=== PATIENT | male | born 1960 | race Caucasian/White ===

== ENCOUNTER 2024-02-24 10:22 | Outpatient (AMB) | payer OTHER, SELFPAY ==
--- NOTE | 2024-02-24 10:23 | MHC.OFFWIV ---
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 Patient's wounds regularly gets ear infections often woke up yesterday with intense ear pain tender to the touch no fever no chills. Put some frll-msg-mtyaldg ear drops with some relief feeling better today but still with pain PFSH Social History Patient Tobacco Use Status: Never used Tobacco Physical Exam Vital Signs: Last Vital Signs Temp 97.7 F 02/24/24 10:28 Pulse 78 02/24/24 10:28 BP 122/68 02/24/24 10:28 Pulse Ox 98 02/24/24 10:28 BMI result Body Mass Index 25.4 Const General: cooperative, healthy appearing, no acute distress and alert Orientation/consciousness: patient oriented x3 Limitations: no limitations HEENT Other: Mild tragal tenderness. Swelling of the right ear canal purulent material eardrum intact Head: Yes normal to inspection Ears: hearing grossly normal bilaterally General nose exam: Normal external nose present Resp Effort & Inspection: normal respiratory effort and able to speak in complete sentences Cardio Rate: regular rate Skin General skin exam: no rashes or lesions noted Neuro General: patient oriented x3 Extrem General: Yes normal to inspection Assessment & Plan Assessment & Plan (1) Otitis externa: Code(s): H60.90 - Unspecified otitis externa, unspecified ear Qualifiers: Otitis externa type: swimmer's ear Chronicity: acute Laterality: right Qualified Code(s): H60.331 - Swimmer's ear, right ear Plan: Exam consistent with otitis externa start ofloxacin Plan -ofloxacin 10 drops q.i.d. times 10 days -Motrin 600 mg t.i.d. times 2-3 day Medications: New ofloxacin 0.3% 10 drps otic (ears) DAILY 10 days 10 mL 0RF Coding Level of Care Code New Pt Level 4 (90448) Diagnoses Acute swimmer's ear of right side H60.331 Otitis externa type: swimmer's ear Chronicity: acute Laterality: right
[2024-02-24 10:28] VITALS: BP 122/68; PULSE 78; TEMP 36.5; O2SAT 98; BMI 25.4
--- OUTSIDE RECORDS SUMMARY | 2024-02-25 00:35 | XMS_ITS | Continuity of Care Document ---
Author Organization [facility] Mohinder Fabiano lt Address [address] [place] [address]- Care Team Providers Care Nib Inspector Name Role Phone Masood Felton MD Primary Care Physician [facility] Adult [address] [place] [address]- Encounter Diagnosis Physical exam(Discharge Diagnosis) - 03/21/21 Macrocytosis without anemia neg lab tsh retivcs hapto B12/folate(Discharge Diagnosis) - 03/21/21 Impaired fasting glycaemia(Discharge Diagnosis) - 03/21/21 Sleep apnea(Discharge Diagnosis) - 03/21/21 Asymmetrical hearing normal MRI'per ENT monitorT(Discharge Diagnosis) - 03/21/21 ED (erectile dysfunction)(Discharge Diagnosis) - 03/21/21 CTS (carpal tunnel syndrome) rt(Discharge Diagnosis) - 03/24/21 Dupuytren contracture left(Discharge Diagnosis) - 03/24/21 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) - 03/24/21 Onychomycosis toenails(Discharge Diagnosis) - 03/24/21 Attending Physician: Masood Felton MD Allergies, Adverse Reactions, Alerts Substance Reaction Severity Status sulfamethoxazole Active Immunizations Given and Recorded Vaccine Date Status Refusal Reason Influenza Virus Vaccine (oldterm) 03/18/21 Recorde d Influenza Virus Vaccine (oldterm) 05/12/20 Recorde d Influenza Virus Vaccine (oldterm) 03/03/20 Recorde d SARS-CoV-2 (COVID-19) mRNA BNT-162b2 vac 10/26/20 Recorded SARS-CoV-2 (COVID-19) mRNA BNT-162b2 vac 10/04/20 Recorded Zoster Vaccine Live 04/02/20 Recorded Zoster Vaccine Live 12/02/19 Recorded influenza virus vaccine, inactivated 1 04/19/16 Re corded influenza virus vaccine, inactivated 05/04/15 Omero rded influenza virus vaccine, inactivated 04/13/14 Omero rded influenza virus vaccine, inactivated 2 07/16/13 Gi bella Afluria (oldterm) 3 05/01/12 Given Tet/Diphth/Acel, Pertussis (oldterm) 06/14/11 Give n tetanus-diphtheria toxoids (Td) 4 04/25/01 Given 1Result Comment: [04/20/2016] [facility] 2Admin Note: pt declines 3Admin Note: given at work 4Admin Note: historical Medications Viagra 100 mg oral tablet 1 tablet = 100 mg, By Mouth, Daily, 1 hour before sexual activity, # 5 tablet, 5 Refills, Maintenance, 03/24/21 7:34:00 EDT, Tablet, [id number], 170, cm, 03/24/21 7:25:00 EDT, Height Start Date: 03/24/21 Status: Ordered Problem List Condition Effective Dates Status Health Status Inform ant Asymmetrical hearing normal MRI'per ENT monitorT(Confirmed) 08/21/20 Active CTS (carpal tunnel syndrome) rt(Confirmed) Active Chronic eczema(Confirmed) Active Dupuytren contracture left(Confirmed) 03/24/21 Active Exostosis of bone of foot le ft refer podaitry(Confirmed) 03/24/21 Active ED (erectile dysfunction)(Confirmed) Active Macrocytosis without anemia neg lab tsh retivcs hapto B12/folate(Confirmed) Active Onychomycosis toenails(Confirmed) Active Osteoarthritis of knee(Confirmed) Active Hx of ankle fusion(Confirmed) 1 09/03/14 Active Sleep apnea ahi 10.3(Confirm ed) 2, 3, 4 Active 1NE Spiritism 2refer CPAP 3The apneas-hypopnea index was 10.3 per hour. The REM AHI was 21.0 per hour and the NREM AHI was 7.7per hour. The supine AHI is 10.3 per hour. The number of arousals was 57 for an arousal index of 9.5. 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
--- OUTSIDE RECORDS SUMMARY | 2024-02-25 00:35 | XMS_ITS | Continuity of Care Document ---
Author Organization [facility] Brayan Vines Fabiano Address [address] [place] [address]- Care Team Providers Care Physician Pediatrician Name Role Phone Brayan Ahmadi MD Primary Care Physician [facility]s): 10[facility]22 - 11/19/22 [facility] Brayan Vines Adult [address] [place] [address]- Allergies, Adverse Reactions, Alerts Substance Reaction Severity Status sulfamethoxazole Active Immunizations Given and Recorded Vaccine Date Status Refusal Reason tetanus-diphtheria toxoids (Td) 10/14/22 Given tetanus-diphtheria toxoids (Td) 1 04/25/01 Given influenza virus vaccine, inactivated 2 04/08/22 Gi bella influenza virus vaccine, inactivated 04/16/20 Omero rded influenza virus vaccine, inactivated 04/30/19 Omero rded influenza virus vaccine, inactivated 04/18/18 Omero rded influenza virus vaccine, inactivated 3 04/19/16 Re corded influenza virus vaccine, inactivated 05/04/15 Omero rded influenza virus vaccine, inactivated 04/14/15 Omero rded influenza virus vaccine, inactivated 04/17/14 Omero rded influenza virus vaccine, inactivated 04/13/14 Omero rded influenza virus vaccine, inactivated 4 07/16/13 Gi bella SARS-CoV-2 (COVID-19) mRNA BNT-162b2 vac 07/15/21 Recorded SARS-CoV-2 (COVID-19) mRNA BNT-162b2 vac 10/26/20 Recorded SARS-CoV-2 (COVID-19) mRNA BNT-162b2 vac 10/04/20 Recorded Influenza Virus Vaccine (oldterm) 03/18/21 Recorde d Influenza Virus Vaccine (oldterm) 05/12/20 Recorde d Influenza Virus Vaccine (oldterm) 03/03/20 Recorde d Zoster Vaccine Live 04/02/20 Recorded Zoster Vaccine Live 12/02/19 Recorded zoster vaccine, inactivated 09/05/19 Recorded zoster vaccine, inactivated 06/07/19 Recorded Afluria (oldterm) 5 05/01/12 Given Tet/Diphth/Acel, Pertussis (oldterm) 06/14/11 Give n 1Admin Note: historical 2Result Comment: [facility] [id number] 3Result Comment: [04/20/2016] [facility] 4Admin Note: pt declines 5Admin Note: given at work Medications Multivitamin Daily, 0 Refills, Maintenance, 04/08/22 8:04:00 EDT, Partial fill upon patient request if the prescription is for a schedule II opioid drug. Start Date: 04/08/22 Status: Ordered tadalafil 5 mg oral tablet 1 tablet = 5 mg, By Mouth, Daily, 1 hour before sexual activity, # 90 tablet, 3 Refills, Maintenance, 10/14/22 9:47:00 EDT, Tablet, [facility], Partial fill upon patient request if the prescription is for a schedule II opioid drug., 170, cm,... Start Date: 10/14/22 Stop Date: 10/09/23 Status: Ordered Problem List Condition Confirmation Course Effective Dates Status H ealth Status Informant Asymmetrical hearing normal MRI'per ENT monitorT Confirmed 08/21/20 Active CTS (carpal tunnel syndrome) rt Confirmed Active Chronic eczema Confirmed Active Dupuytren contracture left Confirmed 03/24/21 Active Exostosis of bone of foot left refer podaitry Confirmed 03/24/21 Active History of arthroplasty of left knee Confirmed Active ED (erectile dysfunction) Confirmed Active Macrocytosis without anemia neg lab tsh retivcs hapto B12/folate Confirmed Active Onychomycosis toenails Confirmed Active Hx of ankle fusion 1 Confirmed 09/03/14 Active Sleep apnea ahi 10.3 2, 3, 4 Confirmed Active 1NE [employer] 2refer CPAP 3The apneas-hypopnea index was 10.3 per hour. The REM AHI was 21.0 per hour and the NREM AHI was 7.7per hour. The supine AHI is 10.3 per hour. The number of arousals was 57 for an arousal index of 9.5. 4per wifel;refer polysomnogram Social History Social History Type Response Smoking Status Never smoker entered on: 07/16/13 Sex Patient Care team information Care Team Personnel Name: Brayan Ahmadi MD Position: S Primary Care Physician Member Role: PCP Address: Address: [address] [place] [address]- Care Team Related Persons Name: BC BARRAGAN Address: home [address] [place] [address]
--- OUTSIDE RECORDS SUMMARY | 2024-02-25 00:35 | XMS_ITS | Continuity of Care Document ---
Author Organization [facility] Mohinder Fabiano lt Address [address] [place] [address]- Care Team Providers Care Commercial Loan Underwriter Name Role Phone Purnima HENSLEY, Masood Hwang Primary Care Physician Encounter [facility] Date(s): 04/08/22 - 04/15/22 [facility] Adult [address] [place] [address]- Encounter Diagnosis Preop examination(Discharge Diagnosis) - 04/06/22 Localized osteoarthritis of left knee/end stage'pre sx(Discharge Diagnosis) - 04/06/22 Sleep apnea ahi 10.3(Discharge Diagnosis) - 04/06/22 Impacted cerumen(Discharge Diagnosis) - 04/08/22 Attending Physician: Masood Felton MD Referring Physician: Jeffrey Cagle MD Allergies, Adverse Reactions, Alerts Substance Reaction Severity Status sulfamethoxazole Active Immunizations Given and Recorded Vaccine Date Status Refusal Reason influenza virus vaccine, inactivated 1 04/08/22 Gi bella influenza virus vaccine, inactivated 2 04/19/16 Re corded influenza virus vaccine, inactivated 05/04/15 Omero rded influenza virus vaccine, inactivated 04/13/14 Oemro rded influenza virus vaccine, inactivated 3 07/16/13 Gi bella Influenza Virus Vaccine (oldterm) 03/18/21 Recorde d Influenza Virus Vaccine (oldterm) 05/12/20 Recorde d Influenza Virus Vaccine (oldterm) 03/03/20 Recorde d SARS-CoV-2 (COVID-19) mRNA BNT-162b2 vac 10/26/20 Recorded SARS-CoV-2 (COVID-19) mRNA BNT-162b2 vac 10/04/20 Recorded Zoster Vaccine Live 04/02/20 Recorded Zoster Vaccine Live 12/02/19 Recorded Afluria (oldterm) 4 05/01/12 Given Tet/Diphth/Acel, Pertussis (oldterm) 06/14/11 Give n tetanus-diphtheria toxoids (Td) 5 04/25/01 Given 1Result Comment: [facility] [phone] 2Result Comment: [04/20/2016] [facility] 3Admin Note: pt declines 4Admin Note: given at work 5Admin Note: historical Medications Multivitamin Daily, 0 Refills, Maintenance, 04/08/22 8:04:00 EDT, Partial fill upon patient request if the prescription is for a schedule II opioid drug. Start Date: 04/08/22 Status: Ordered Problem List Condition Confirmation Course Effective Dates Status H ealth Status Informant Asymmetrical hearing normal MRI'per ENT monitorT Confirmed 08/21/20 Active CTS (carpal tunnel syndrome) rt Confirmed Active Chronic eczema Confirmed Active Dupuytren contracture left Confirmed 03/24/21 Active Exostosis of bone of foot left refer podaitry Confirmed 03/24/21 Active ED (erectile dysfunction) Confirmed Active Macrocytosis without anemia neg lab tsh retivcs hapto B12/folate Confirmed Active Onychomycosis toenails Confirmed Active Localized osteoarthritis of left knee/end stage'pre sx Confirmed Active Hx of ankle fusion 1 Confirmed 09/03/14 Active Sleep apnea ahi 10.3 2, 3, 4 Confirmed Active 1NE [facility] 2refer CPAP 3The apneas-hypopnea index was 10.3 per hour. The REM AHI was 21.0 per hour and the NREM AHI was 7.7per hour. The supine AHI is 10.3 per hour. The number of arousals was 57 for an arousal index of 9.5. 4per wifel;refer polysomnogram Diagnosis Diagnosis Type Effective Dates Health Status Clinical Service Informant Preop examination Discharge Diagnosis 04/06/22 Localized osteoarthritis of left knee/end stage'pre sx Discharge Diagnosis 04/06/22 Sleep apnea ahi 10.3 Discharge Diagnosis 04/06/22 Impacted cerumen Discharge Diagnosis 04/08/22 Procedures Procedure Date Related Diagnosis Body Site Status Electrocardiogram nsr Com pleted Vital Signs Most recent to oldest [Reference Range]: 1 Height 170.00 cm (04/08/22 7:58 AM) Weight 81.5 kg (04/08/22 7:58 AM) Oxygen Saturation [94-100 %] 98 % (04/08/22 7:58 AM) Pulse Rate [55-90 bpm] 76 bpm (04/08/22 7:58 AM) Body Mass Index [18.5-24.99 kg/m2] 28.2 kg/m2 *H* (04/08/22 7:58 AM) Blood Pressure [90-138/55-84 mm Hg] 126/ 70mm Hg (04/08/22 7:58 AM) Mode of Delivery (Oxygen) Room air (04/08/22 7:58 AM) Blood pressure sites Arm, right (04/08/22 7:58 AM) Weight Obtained Via Standing scale (04/08/22 7:58 AM) Social History Social History Type Response Smoking Status Never smoker entered on: 07/16/13 Sex Patient Care team information Personnel Name: Purnima HENSLEY, Masood Hwang Address: Address: [address] [place] [id number]
--- OUTSIDE RECORDS SUMMARY | 2024-02-25 00:35 | XMS_ITS | Continuity of Care Document ---
Author Organization [facility] Mohinder Fabiano lt Address [address] [place] [address]- Care Team Providers Care Heel Washer Stringing Machine Operator Name Role Phone Purnima HENSLEY, Masood Hwang Primary Care Physician [phone] [facility] Date(s): 03/24/21 - 04/23/21 [facility] Mohinder Adult [address] [place] [address]- Allergies, Adverse Reactions, Alerts Substance Reaction Severity [...] (Td) 4 04/25/01 Given 1Result Comment: [04/20/2016] [facility] 2Admin Note: pt declines 3Admin Note: given [...]
--- OUTSIDE RECORDS SUMMARY | 2024-02-25 00:35 | XMS_ITS | Continuity of Care Document ---
Author Organization [facility] Brayan Vines Fabiano Address [address] [place] [address]- Care Team Providers Care General Machinist Name Role Phone Brayan Ahmadi MD Primary Care Physician [facility] Date(s): 01/26/23 - 02/25/23 [facility] Brayan Vines Adult [address] [place] [address]- Allergies, Adverse Reactions, Alerts Substance Reaction Severity [...] Give n 1Admin Note: historical 2Result Comment: [facility] [id number] 3Result Comment: [04/20/2016] [facility] 4Admin Note: pt declines 5Admin Note: given [...] 10.3 2, 3, 4 Confirmed Active 1NE Anabaptist 2refer CPAP 3The apneas-hypopnea index was 10.3 [...] Personnel Name: Brayan Ahmadi MD Position: S Physician - Primary Care Member Role: PCP Address: Address: [address] [place] [address]- Care Team Related Persons Name: BC BARRAGAN Address: home [address] [place] [address]
--- OUTSIDE RECORDS SUMMARY | 2024-02-25 00:36 | XMS_ITS | Continuity of Care Document ---
Author Organization [facility] Brayan Vines Fabiano Address [address] [place] [address]- Care Team Providers Care Efficiency Expert Name Role Phone Brayan Ahmadi MD Primary Care Physician [facility] Date(s): 07/13/23 - 08/12/23 [facility] Brayan Vines Adult [address] [place] [address]- Allergies, Adverse Reactions, Alerts Substance Reaction Severity Status sulfamethoxazole Active Immunizations Given and Recorded Vaccine Date Status Refusal Reason influenza virus vaccine, inactivated 1 07/24/23 Gi bella influenza virus vaccine, inactivated 2 04/08/22 Gi [...] virus vaccine, inactivated 4 07/16/13 Gi bella tetanus-diphtheria toxoids (Td) 10/14/22 Given tetanus-diphtheria toxoids (Td) 5 04/25/01 Given SARS-CoV-2 (COVID-19) mRNA BNT-162b2 vac 07/15/21 Recorded [...] zoster vaccine, inactivated 06/07/19 Recorded Afluria (oldterm) 6 05/01/12 Given Tet/Diphth/Acel, Pertussis (oldterm) 06/14/11 Give n 1Result Comment: [id number] Checklist completed 2Result Comment: [facility] [phone] 3Result Comment: [04/20/2016] [facility] 4Admin Note: pt declines 5Admin Note: historical 6Admin Note: given at work Medications Flonase 50 mcg/inh nasal spray 1 sprays = 50 mcg, Nares, Both, 2 times a day, # 16 Gm, 0 Refills, Maintenance, 07/24/23 11:05:00 EST, [place], [facility], 1 sprays Nares, Both 2 times a day, 170, cm, 07/24/23 10:45:00 EST, Height Start Date: 07/24/23 Status: Ordered Multivitamin Daily, 0 Refills, Maintenance, 04/08/22 8:04:00 EDT, Partial fill upon patient request if the prescription is for a schedule II opioid drug. Start Date: 04/08/22 Status: Ordered PEG-3350 with Electrolytes (Eqv-GoLYTELY) oral powder for reconstitution 240 mL, By Mouth, Every 15 minutes, Split prep method. 1/2 gallon evening prior to colonscopy and 1/2 gallon 6h prior to start of colonoscopy, # 4,000 mL, 0 Refills, Maintenance, 08/07/23 9:51:00 EST, [facility], Colonosopy Date: 08/21/23, 240... Start Date: 08/07/23 Status: Ordered tadalafil 20 mg oral tablet 1 tablet = 20 mg, By Mouth, Daily, PRN as needed, 1 hour before sexual activity, # 5 tablet, 11 Refills, Maintenance, 03/27/23 10:39:00 EDT, Tablet, [facility], Partial fill upon patient request if the prescription is for a schedule II opioid... Start Date: 03/27/23 Status: Ordered Problem List Condition Confirmation Course [...] 10.3 2, 3, 4 Confirmed Active 1NE Pentecostalism 2refer CPAP 3The apneas-hypopnea index was 10.3 [...] Team Personnel Name: Brayan Ahmadi MD Position: [facility] Physician - Primary Care Member Role: PCP Address: Address: [address] [facility] [place] [address]- Care Team Related Persons Name: BC BARRAGAN Address: home [address] [place] [address]
--- OUTSIDE RECORDS SUMMARY | 2024-02-25 00:36 | XMS_ITS | Continuity of Care Document ---
Author Organization [facility] Brayan Vines Fabiano lt Address [address] [place] [address]- Care Team Providers Care Pipe Organ Installer Name Role Phone Brayan Ahmadi MD Primary Care Physician [facility] Date(s): 07/24/23 - 08/23/23 [facility] Adult [address] [place] [address]- Allergies, Adverse Reactions, Alerts Substance Reaction Severity [...] 04/13/14 Omero rded influenza virus vaccine, inactivated 07/16/13 Gi bella tetanus-diphtheria toxoids (Td) 10/14/22 [...] Pertussis (oldterm) 06/14/11 Give n 1Result Comment: [id number] Checklist completed 2Result Comment: [facility] [phone] 3Result Comment: [04/20/2016] [facility] 4Admin Note: pt declines 5Admin Note: historical 6Admin Note: given at work Medications Flonase 50 mcg/inh nasal spray 1 sprays = 50 mcg, Nares, Both, 2 times a day, # 16 Gm, 0 Refills, Maintenance, 07/24/23 11:05:00 EST, [place], [facility], 1 sprays Nares, Both 2 times a day, 170, cm, 07/24/23 10:45:00 EST, Height Start Date: 07/24/23 Status: Ordered Multivitamin Daily, 0 Refills, Maintenance, 04/08/22 8:04:00 EDT, Partial fill upon patient request if the prescription is for a schedule II opioid drug. Start Date: 04/08/22 Status: Ordered tadalafil 20 mg oral tablet 1 tablet = 20 mg, By Mouth, Daily, PRN as needed, 1 hour before sexual activity, # 5 tablet, 11 Refills, Maintenance, 03/27/23 10:39:00 EDT, Tablet, [facility], Partial fill upon patient [...] 10.3 2, 3, 4 Confirmed Active 1NE Baptism 2refer CPAP 3The apneas-hypopnea index was 10.3 [...] Team Personnel Name: Brayan Ahmadi MD Position: [facility] Physician - Primary Care Member Role: PCP Address: Address: [address] [place] [address]- Care Team Related Persons Name: BC BARRAGAN Address: [address] [place] [address]
--- OUTSIDE RECORDS SUMMARY | 2024-02-25 00:36 | XMS_ITS | Continuity of Care Document ---
Author Organization [facility] Brayan Vines Fabiano lt Address [address] [place] [address]- Care Team Providers Care Card Seller Name Role Phone Purnima HENSLEY, Masood Hwang Primary Care Physician Encounter [facility] Date(s): 08/10/20 - 09/09/20 [facility] Brayan Vines Adult [address] [place] [address]- Allergies, Adverse Reactions, Alerts Substance Reaction Severity Status sulfamethoxazole Active Immunizations Given and Recorded Vaccine Date Status Refusal Reason Influenza Virus Vaccine (oldterm) 05/12/20 Recorde d [...] (Td) 4 04/25/01 Given 1Result Comment: [04/20/2016] [facility] 2Admin Note: pt declines 3Admin Note: given at work 4Admin Note: historical Medications Viagra 100 mg oral tablet 1 tablet = 100 mg, By Mouth, Daily, 1 hour before sexual activity, # 5 tablet, 5 Refills, Maintenance, 10/02/15 9:22:26, Tablet Start Date: 10/02/15 Status: Ordered Problem List Condition Effective Dates Status Health Status Inform ant Asymmetrical hearing loss re michi ENT(Confirmed) 08/21/20 Active Body mass index 25-29 - overweight(Confirmed) Active Chronic eczema(Confirmed) Active ED (erectile dysfunction)(Confirmed) Active Macrocytosis without anemia neg lab tsh retivcs hapto B12/folate(Confirmed) Active Osteoarthritis of knee(Confirmed) Active Hx of ankle fusion(Confirmed) 1 09/03/14 Active Sleep apnea(Confirmed) 2, 3, 4 Active 1NE Gnosticist 2refer CPAP 3The apneas-hypopnea index was 10.3 [...]
--- OUTSIDE RECORDS SUMMARY | 2024-02-25 00:36 | XMS_ITS | Continuity of Care Document ---
Author Organization 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 Chief Name Role Phone Masood Felton MD Primary Care Physician [place] [facility] [place] - 08/20/[address] [address]- [facility] Discharge Disposition: A-D/C Home Attending Physician: Masood Felton MD Admitting Physician: Masood Felton MD Referring Physician: Masood Felton MD Allergies, Adverse Reactions, Alerts Substance Reaction Severity Status sulfamethoxazole Active Immunizations Given and Recorded Vaccine Date Status Refusal Reason influenza virus vaccine, inactivated 1 04/19/16 Re corded influenza virus vaccine, inactivated 05/04/15 Omero rded influenza virus vaccine, inactivated 04/13/14 Omero rded influenza virus vaccine, inactivated 2 07/16/13 Gi bella Afluria (oldterm) 3 05/01/12 Given Tet/Diphth/Acel, Pertussis (oldterm) 06/14/11 Give n tetanus-diphtheria toxoids (Td) 4 04/25/01 Given 1Result Comment: [04/20/2016] [facility] 2Admin Note: pt declines 3Admin Note: given at work 4Admin Note: historical Medications Amoxicillin By Mouth, Maintenance, DENTAL INFECTION, 05/10/19 8:31:33 EST Start Date: 05/10/19 Status: Ordered Viagra 100 mg oral tablet 1 tablet = 100 mg, By Mouth, Daily, 1 hour before sexual activity, # 5 tablet, 5 Refills, Maintenance, 10/02/15 9:22:26, Tablet Start Date: 10/02/15 Status: Ordered Problem List Condition Effective Dates Status Health Status Inform ant Body mass index 25-29 - overweight(Confirmed) Active Chronic eczema(Confirmed) Active ED (erectile dysfunction)(Confirmed) Active Macrocytic anemia(Confirmed) 1, 2, 3, 4 Active Osteoarthritis of knee(Confirmed) Active Hx of ankle fusion(Confirmed) 5 09/03/14 Active Sleep apnea(Confirmed) 6, 7, 8 Active 1normal immun fix 2normal tsh haptoglobin b12 3normal b12 folate ldh, haptoglobin,retics 4macrocytosis workup 5NE Moravian 6refer CPAP 7The apneas-hypopnea index was 10.3 per hour. The REM AHI was 21.0 per hour and the NREM AHI was 7.7per hour. The supine AHI is 10.3 per hour. The number of arousals was 57 for an arousal index of 9.5. 8per wifel;refer polysomnogram Social History Social History Type Response Smoking Status Never smoker entered on: 07/16/13 Sex
--- OUTSIDE RECORDS SUMMARY | 2024-02-25 00:36 | XMS_ITS | Continuity of Care Document ---
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 4Admin Note: pt declines 5Admin Note: historical 6Admin Note: given at work Medications Flonase 50 mcg/inh nasal spray 1 sprays = 50 mcg, Nares, Both, 2 times a day, # 16 Gm, 0 Refills, Maintenance, 07/24/23 11:05:00 EST, [place], [facility], 1 sprays [...] 11 Refills, Maintenance, 03/27/23 10:39:00 EDT, Tablet, [facility], Partial fill upon patient [...] 10.3 2, 3, 4 Confirmed Active 1NE Scientologist 2refer CPAP 3The apneas-hypopnea index was 10.3 [...] Team Personnel Name: Brayan Ahmadi MD Position: [facility] Physician - Primary Care Member Role: PCP Address: Address: [address] [place] [address]- Care Team Related Persons Name: BC BARRAGAN Address: [address] [place] [address]
--- OUTSIDE RECORDS SUMMARY | 2024-02-25 00:36 | XMS_ITS | Continuity of Care Document ---
Author Organization [facility] Mohinder Fabiano lt Address [address] [place] [address]- Care Team Providers Care Property Damage Claims Adjustor Name Role Phone Purnima HENSLEY, Masood Hwang Primary Care Physician [place] [facility] [place] 03/22/22 [facility] [place] Adult [address] [place] [address]- Encounter Diagnosis Lower back pain(Discharge Diagnosis) - 03/15/22 Attending Physician: Gill Cortez NP Allergies, Adverse Reactions, Alerts Substance Reaction Severity [...] 04/25/01 Given 1Result Comment: [04/20/2016] [facility] 2Admin Note: pt declines 3Admin Note: given at work 4Admin Note: historical Medications cyclobenzaprine 5 mg oral tablet See Instructions, Take 1 tablet every 8 hours as needed for muscle spasm, # 21 capsule, 0 Refills, Maintenance, 03/15/22 13:36:00 EDT, Tablet, [id number], Partial fill upon patient request ifthe prescription is for a schedule II opioid drug.,... Start Date: 03/15/22 Status: Ordered fluconazole 200 mg oral tablet 1 tablet = 200 mg, By Mouth, Daily, 0 Refills, Maintenance, 09/06/21 9:20:00 EST, Partial fill uponpatient request if the prescription is for a schedule II opioid drug. Start Date: 09/06/21 Status: Ordered Viagra 100 mg oral tablet 1 tablet = 100 mg, By Mouth, Daily, 1 hour before sexual activity, # 5 tablet, 2 Refills, Maintenance, 09/07/21 11:38:00 EST, Tablet, [id number], 170, cm, 09/06/21 9:17:00 EST, Height Start Date: 09/07/21 Status: Ordered Problem List Condition Effective Dates [...] 10.3(Confirm ed) 2, 3, 4 Active 1NE Hindu 2refer CPAP 3The apneas-hypopnea index was 10.3 per hour. The REM AHI was 21.0 per hour and the NREM AHI was 7.7per hour. The supine AHI is 10.3 per hour. The number of arousals was 57 for an arousal index of 9.5. 4per wifel;refer polysomnogram Diagnosis Diagnosis Type Effective Dates Health Status Cl inical Service Informant Lower back pain Discharge Diagnosis 03/15/22 Vital Signs Most recent to oldest [Reference Range]: 1 Height 170.00 cm (03/15/22 1:02 PM) Social History Social History Type Response Smoking Status Never smoker entered on: 07/16/13 Sex Care Team Personnel Name: Purnima HENSLEY, Masood Hwang Address: [address] [place] [id number]
--- OUTSIDE RECORDS SUMMARY | 2024-02-25 00:36 | XMS_ITS | Continuity of Care Document ---
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 4Admin Note: pt declines 5Admin Note: historical 6Admin Note: given at work Medications Multivitamin Daily, [...] 11 Refills, Maintenance, 03/27/23 10:39:00 EDT, Tablet, [facility], [...] 10.3 2, 3, 4 Confirmed Active 1NE Shinto 2refer CPAP 3The apneas-hypopnea index was 10.3 [...] Primary Care Member Role: PCP Address: Address: [address] [place] [address]- Care Team Related Persons Name: BC BARRAGAN Address: home [address] [place] [address]
--- OUTSIDE RECORDS SUMMARY | 2024-02-25 00:36 | XMS_ITS | Continuity of Care Document ---
Author Organization [facility] Mohinder Fabiano lt Address [address] [place] [address]- Care Team Providers Care Supervisor Display Fabrication Name Role Phone Purnima HENSLEY, Masood Hwang Primary Care Physician Encounter [facility] Date(s): 05/25/21 - 06/01/21 [facility] Adult [address] [place] [address]- Encounter Diagnosis Right ankle pain(Discharge Diagnosis) - 05/25/21 Attending Physician: Russell DIRECTOR OF STRATEGIC INITIATIVES, Jess Walters Allergies, Adverse Reactions, Alerts Substance Reaction Severity [...] 4 04/25/01 Given 1Result Comment: [04/20/2016] [facility] 2Admin Note: pt declines 3Admin Note: [...] 10.3(Confirm ed) 2, 3, 4 Active 1NE Adventist 2refer CPAP 3The apneas-hypopnea index was 10.3 per hour. The REM AHI was 21.0 per hour and the NREM AHI was 7.7per hour. The supine AHI is 10.3 per hour. The number of arousals was 57 for an arousal index of 9.5. 4per wifel;refer polysomnogram Diagnosis Diagnosis Type Effective Dates Health Status Cl inical Service Informant Right ankle pain Discharge Diagnosis 05/25/21 Vital Signs Most recent to oldest [Reference Range]: 1 Height 170.00 cm (05/25/21 2:56 PM) Weight 79.52 kg (05/25/21 2:56 PM) Oxygen Saturation [94-100 %] 98 % (05/25/21 2:56 PM) Pulse Rate [55-90 bpm] 70 bpm (05/25/21 2:56 PM) Body Mass Index [18.5-24.99] 27.52 *H* (05/25/21 2:56 PM) Blood Pressure [90-138/55-84 mm Hg] 120/ 76mm Hg (05/25/21 2:56 PM) Respiratory Rate [16-30 br/min] 16 br/mi n (05/25/21 2:56 PM) Temperature [96.8-100.4 DegF] 97.9 DegF (05/25/21 2:56 PM) Mode of Delivery (Oxygen) Room air (05/25/21 2:56 PM) Blood pressure sites Arm, right (05/25/21 2:56 PM) Temperature Route Oral (05/25/21 2:56 PM) Weight Obtained Via Standing scale (05/25/21 2:56 PM) Social History Social History Type Response Smoking Status Never smoker entered on: 07/16/13 Sex
--- OUTSIDE RECORDS SUMMARY | 2024-02-25 00:36 | XMS_ITS | Continuity of Care Document ---
Author Organization [facility] Brayan Vines Fabiano lt Address [address] [place] [address]- Care Team Providers Care Manager Massage Department Name Role Phone Masood Felton MD Primary Care Physician Encounter [facility] [place] Date(s): 07/20/19 - 11/17/19 [facility] Adult [address] [place] [address]- [facility] Attending Physician: Masood Felton MD Allergies, Adverse [...] 4 04/25/01 Given 1Result Comment: [04/20/2016] [facility] 2Admin Note: pt declines 3Admin Note: [...] b12 folate ldh, haptoglobin,retics 4macrocytosis workup 5NE Episcopalian 6refer CPAP 7The apneas-hypopnea index was 10.3 [...]
--- OUTSIDE RECORDS SUMMARY | 2024-02-25 00:36 | XMS_ITS | Continuity of Care Document ---
Author Organization [facility] Mohinder Fabiano lt Address [address] [place] [address]- Care Team Providers Care Tube Room Supervisor Name Role Phone Brayan Ahmadi MD Primary Care Physician Encounter [facility] [place] Date(s): 07/24/23 - 07/31/23 [facility] Adult [address] [place] [address]- Attending Physician: Not on Staff, Attending MD Allergies, Adverse Reactions, Alerts Substance Reaction [...] Pertussis (oldterm) 06/14/11 Give n 1Result Comment: [id number] Checklist completed 2Result Comment: [facility] [id number] 3Result Comment: [04/20/2016] [facility] 4Admin Note: pt declines 5Admin Note: historical 6Admin Note: given at work Medications Flonase 50 mcg/inh nasal spray 1 sprays = 50 mcg, Nares, Both, 2 times a day, # 16 Gm, 0 Refills, Maintenance, 07/24/23 11:05:00 EST, [place], [facility], 1 sprays [...] 11 Refills, Maintenance, 03/27/23 10:39:00 EDT, Tablet, [facility], Partial fill upon [...] 10.3 2, 3, 4 Confirmed Active 1NE Oriental Orthodox 2refer CPAP 3The apneas-hypopnea index was 10.3 per hour. The REM AHI was 21.0 per hour and the NREM AHI was 7.7per hour. The supine AHI is 10.3 per hour. The number of arousals was 57 for an arousal index of 9.5. 4per wifel;refer polysomnogram Vital Signs Most recent to oldest [Reference Range]: 1 2 Height 170.00 cm (07/24/23 10:45 AM) 170.00 cm (07/24/23 10:39 AM) Weight 79.4 kg (07/24/23 10:39 AM) Oxygen Saturation [94-100 %] 97 % (07/24/23 10:39 AM) Pulse Rate [55-90 bpm] 68 bpm (07/24/23 10:39 AM) Body Mass Index [18.5-24.99 kg/m2] 27.47 kg/m2 *H* (07/24/23 10:39 AM) Blood Pressure [90-138/55-84 mm Hg] 159/ 89mm Hg *H* (07/24/23 10:45 AM) 151/85mm Hg *H* (07/24/23 10:39 AM) Temperature [96.8-100.4 DegF] 98.2 DegF (07/24/23 10:39 AM) Mode of Delivery (Oxygen) Room air (07/24/23 10:39 AM) Blood pressure sites Arm, left (07/24/23 10:45 AM) Arm, left (07/24/23 10:39 AM) Temperature Route Oral (07/24/23 10:39 AM) Weight Obtained Via Standing scale (07/24/23 10:39 AM) Social History Social History Type Response Smoking Status Never smoker entered on: 07/16/13 Sex Note * Kala Gamez: PERFORM, SIGN, VERIFY Event Display: Patient Education/Instruction Authored Date: [id number] [facility] *BMP So Mohinder Adlt Clinical Summary Name BONY BARRAGAN Age 62 Years 1960 PCP Daiana HENSLEY, Brayan England PCP Visit Date 07/24/2023 10:36:00 Additional Instructions: Scheduled Appointments?? Future Appointments ?[facility] ?[address] ?[facility],??[place],??[address] ?Phone:??[phone]?Fax:??-- ?Appt. Date:??08/21/2023?8:30 AM ?Scheduled Provider:??[id number] Follow-Up Instructions ?? Diagnosis Medications: Please continue your medications until treatment is completed or stopped by your provider. Discuss any questions related to medications with your provider. New Medications [facility], [address] [place], [place] [id number], [phone] Fluticasone Nasal (Flonase 50 mcg/inh nasal spray) 1 spray(s) Nares, Both twice a day. Refills: 0. Next Dose: Medications to Continue with No Changes These medications were not printed or sent to your pharmacy Multivitamin Daily. Next Dose: tadalafil (tadalafil 20 mg oral tablet) 1 tab(s) Oral Daily as needed. 1 hour before sexual activity. Refills: 11. Next Dose: Allergy Info:?? sulfamethoxazole Medications Given This Visit Future Orders ?No future orders Vital Signs Height 170.00 cm Weight 79.4 kg BMI 27.47 kg/m2 Blood Pressure 159 mm Hg/89 mm Hg Temperature 98.2 DegF Pulse Rate 68 bpm Respiratory Rate 02 Sat Mode of Delivery 97 %/Room air You can now view a summary of your hospital visit from the comfort of your home through a free online portal called [employer]. [employer] is a website that allows you to securely view your medical information including discharge summary, medications and follow-up visits. ??You can alsosend a secure electronic message to your doctor???s office to request appointments, renew medications or just ask a question. You can enroll at [email or web address] or register during your next office visit. Disclaimer:?? The information provided is of a general nature and is intended to be used in conjunction with the recommendations and advice of your health care practitioner. ??Every effort has been made to ensure that the information provided is accurate and complete at the time it is provided to you however, as your needs change, or, as new ??information becomes available, different or additional instructions may be required. If you have questions, please consult with your primary care provider or pharmacist, as appropriate. ??This information is not intended to serve as substitution for assessment and evaluation by a qualified health care provider. If you do not have a primary care provider, you may find a [facility] provider by calling [facility] [employer] Link at [phone]. [facility], in keeping with [facility] guidance, no longer requires face masks for staff, patientsor visitors in most situations. Similar to time spent indoors at other locations, there is the chance that you were exposed to respiratory viruses during your time with us (such as flu or COVID-19).? If you develop symptoms concerning for a viral respiratory infection, please seek testing (and treatment if indicated) from your medical provider or home test kit. For information about the plan of care including goals and instructions for your diagnosis, please see the patient education orders section of this document. Patient Education Materials?? The content of this educational material or handout may have been modified, supplemented, or adapted from its original content and format to support your individualized medical care. Fluid in the Middle Ear, No Infection (Adult) Earaches can happen without an infection. This occurs when air and fluid build up behind the eardrum causing a feeling of fullness and discomfort and reduced hearing. This is called otitis media witheffusion (OME) or serous otitis media. It means there is fluid in the middle ear. It is not the same as acute otitis media, which is typically from infection. OME can happen when you have a cold if congestion blocks the passage that drains the middle ear (eustachian tube). It may also occur with nasal allergies or after a bacterial middle ear infection. The pain/discomfort may come and go. You may hear clicking or popping sounds when you chew or swallow. You may feel that your balance is off. Or you may hear ringing in the ear. It often takes from several weeks up to 3 months for the fluid to clear on its own. Oral pain relievers and ear drops help if there is pain. Decongestants and antihistamines sometimes help. Antibiotics don't help since there is no infection. Your doctor may prescribe a nasal spray to help reduce swelling in the nose and eustachian tube. This can allow the ear to drain. If it doesn't improve after 3 months, surgery may be used to drain the fluid and insert a small tube in the eardrum to allow continued drainage. Because the middle ear fluid can become infected, it is important to watch for signs of an ear infection which may develop later. These signs include increased ear pain, fever, or drainage from the ear. Home care The following guidelines will help you care for yourself at home: ??? You may use acetaminophen or ibuprofen to control pain, unless another medicine was prescribed.[NOTE: If you have chronic liver or kidney disease or ever had a stomach ulcer or GI bleeding, talkwith your doctor before using these medicines.] (Aspirin should never be used in anyone under 18 years of age who is ill with a fever. It may cause severe liver damage.) ??? While not always helpful, you may use tgit-cjh-xqnnamr decongestants such as phenylephrine or pseudoephedrine. Don't use nasal spray decongestants more than 3 days. Longer use can make congestionworse. (Prescription nasal sprays from your doctor don't typically have those restrictions.) ??? Antihistamines may help if you are also having allergy symptoms. ??? You may use medicines such as guaifenesin to thin mucus and promote drainage. Follow-up care Follow up with your doctor or as advised if you are not feeling better after 3 days. When to seek medical care Get prompt medical attention if any of the following occur: ??? Ear pain gets worse or does not start to improve ??? Fever of 100.4??F (38??C) or higher, or as directed by your health care provider ??? Fluid or blood draining from the ear ??? Headache or sinus pain ??? Stiff neck ??? Unusual drowsiness or confusion ?? [id number] [employer] [address] [place] [address], [place] [address]. All rights reserved. This information is not intended as a substitute for professional medical care. Always follow your healthcare professional's instructions. Patient Care team information Care Team Personnel Name: Brayan Ahmadi MD Position: [facility] Physician - Primary Care Member Role: PCP Address: Address: [address] [place] [address]- Care Team Related Persons Name: BC BARRAGAN Address: home [address] [place] [address]
--- OUTSIDE RECORDS SUMMARY | 2024-02-25 00:36 | XMS_ITS | Continuity of Care Document ---
Author Organization [facility] Mohinder Fabiano lt Address [address] [place] [address]- Care Team Providers Care Press Operator Heavy Duty Name Role Phone Purnima HENSLEY, Masood Hwang Primary Care Physician Encounter [facility] Date(s): 09/18/20 - 10/18/20 [facility] [place] Adult [address] [place] [address]- Allergies, Adverse Reactions, Alerts Substance Reaction Severity [...] 04/25/01 Given 1Result Comment: [04/20/2016] [facility] 2Admin Note: pt declines 3Admin Note: [...] Sleep apnea(Confirmed) 2, 3, 4 Active 1NE Yazdanism 2refer CPAP 3The apneas-hypopnea index was 10.3 per hour. The REM AHI was 21.0 per hour and the NREM AHI was 7.7per hour. The supine AHI is 10.3 per hour. The number of arousals was 57 for an arousal index of 9.5. 4per wifel;refer polysomnogram Procedures Procedure Date Related Diagnosis Body Site Status MRI of brain and brain stem normal iac 1 09/18/20 Completed 1Normal IACs. The visualized brain parenchyma shows bilateral white matter disease without enhancement. The findings are nonspecific and could be due to chronic small vessel ischemic disease. Please correlate clinically. Social History Social History Type Response Smoking Status Never smoker entered on: 07/16/13 Sex
--- OUTSIDE RECORDS SUMMARY | 2024-02-25 00:36 | XMS_ITS | Continuity of Care Document ---
Author Organization [facility] Mohinder Fabiano Address [address] [place] [address]- Care Team Providers Care Carton Filling Machine Operator Name Role Phone Purnima HENSLEY, Masood Hwang Primary Care Physician [phone] [place] [facility] 09/07/21 - 10/07/21 [facility] [place] Adult [address] [place] [address]- Allergies, Adverse Reactions, Alerts Substance Reaction Severity [...] 04/25/01 Given 1Result Comment: [04/20/2016] [facility] 2Admin Note: pt declines 3Admin Note: given at work 4Admin Note: historical Medications fluconazole 200 mg oral tablet 1 tablet [...] 2 Refills, Maintenance, 09/07/21 11:38:00 EST, Tablet, [id number], 170, cm, 09/06/21 9:17:00 EST, Height [...] 10.3(Confirm ed) 2, 3, 4 Active 1NE Church 2refer CPAP 3The apneas-hypopnea index was 10.3 [...]
--- OUTSIDE RECORDS SUMMARY | 2024-02-25 00:36 | XMS_ITS | Continuity of Care Document ---
Author Organization [facility] Mohinder Fabiano lt Address [address] [place] [address]- Care Team Providers Care Port Captain Name Role Phone Purnima HENSLEY, Masood Hwang Primary Care Physician En[facility] [place] [place] Date(s): 07/02/20 - 08/01/20 [facility] Adult [address] [place] [address]- Attending Physician: Admtr, Ar8 Allergies, Adverse Reactions, Alerts Substance Reaction Severity [...] 04/25/01 Given 1Result Comment: [04/20/2016] [facility] 2Admin Note: pt declines 3Admin Note: [...] Sleep apnea(Confirmed) 2, 3, 4 Active 1NE Buddhism 2refer CPAP 3The apneas-hypopnea index was 10.3 per hour. The REM AHI was 21.0 per hour and the NREM AHI was 7.7per hour. The supine AHI is 10.3 per hour. The number of arousals was 57 for an arousal index of 9.5. 4per wifel;refer polysomnogram Procedures Procedure Date Related Diagnosis Body Site Status Polysomnogram 1 07/23/13 Completed 1The apneas-hypopnea index was 10.3 per hour. The REM AHI was 21.0 per hour and the NREM AHI was 7.7per hour. The supine AHI is 10.3 per hour. The number of arousals was 57 for an arousal index of 9.5. refer cpap Social History Social History Type Response Smoking Status Never smoker entered on: 07/16/13 Sex
--- OUTSIDE RECORDS SUMMARY | 2024-02-25 00:36 | XMS_ITS | Continuity of Care Document ---
Author Organization [facility] Mohinder Fabiano lt Address [address] [place] [address]- Care Team Providers Care Shoer Name Role Phone Brayan Ahmadi MD Primary Care Physician [place] [facility] [place] 11/01/23 - 11/08/23 [facility] Adult [address] [place] [address]- Attending Physician: Brayan Ahmadi MD Allergies, Adverse Reactions, Alerts Substance Reaction [...] Pertussis (oldterm) 06/14/11 Give n 1Result Comment: [id number] Checklist completed 2Result Comment: [facility] [phone] 3Result Comment: [04/20/2016] [facility] 4Admin Note: pt declines 5Admin Note: [...] 10.3 2, 3, 4 Confirmed Active 1NE Yazdanism 2refer CPAP 3The apneas-hypopnea index was 10.3 per hour. The REM AHI was 21.0 per hour and the NREM AHI was 7.7per hour. The supine AHI is 10.3 per hour. The number of arousals was 57 for an arousal index of 9.5. 4per wifel;refer polysomnogram Vital Signs Most recent to oldest [Reference Range]: 1 Height 170 cm (11/01/23 8:23 AM) Weight 79.4 kg (11/01/23 8:23 AM) Oxygen Saturation [94-100 %] 98 % (11/01/23 8:23 AM) Pulse Rate [55-90 bpm] 82 bpm (11/01/23 8:23 AM) Body Mass Index [18.5-24.99 kg/m2] 27.47 kg/m2 *H* (11/01/23 8:23 AM) Blood Pressure [90-138/55-84 mm Hg] 110/ 82mm Hg (11/01/23 8:23 AM) Mode of Delivery (Oxygen) Room air (11/01/23 8:23 AM) Blood pressure sites Arm, left (11/01/23 8:23 AM) Weight Obtained Via Standing scale (11/01/23 8:23 AM) Social History Social History Type Response Smoking Status Never smoker entered on: 07/16/13 Sex Note * Maye Morales: PERFORM, SIGN, VERIFY Event Display: Patient Education/Instruction Authored Date: [id number] [facility] *MIGUELINA Brown Clinical Summary Name BONY BARRAGAN Age 63 Years 1960 PCP Brayan Ahmadi MD PCP Visit Date 11/01/2023 08:15:00 Additional Instructions: Scheduled Appointments?? Future Appointments ?No Future Appointments Scheduled Follow-Up Instructions ?? With: Address: When: Brayan Ahmadi MD In 1 year Comments: Physical examination Diagnosis Medications: Please continue your medications until treatment is completed or stopped by your provider. Discuss any questions related to medications with your provider. Medications to Continue with No Changes These medications were not printed or sent to your pharmacy Multivitamin Daily. Next Dose: tadalafil (tadalafil 20 mg oral tablet) 1 tab(s) Oral Daily as needed. 1 hour before sexual activity. Refills: 11. Next Dose: No Longer Take the Following Medications Fluticasone Nasal (Flonase 50 mcg/inh nasal spray) 1 spray(s) Nares, Both twice a day. Refills: 0. Allergy Info:?? sulfamethoxazole Medications Given This Visit Future Orders ?No future orders Future Orders ?Comprehensive Metabolic Panel? Order Date:11/01/23?- Complete within?Lipid Panel? Order Date:11/01/23?- Complete within?PSA? Order Date:11/01/23?- Complete within? Vital Signs Height 170 cm Weight 79.4 kg BMI 27.47 kg/m2 Blood Pressure 110 mm Hg/82 mm Hg Temperature Pulse Rate 82 bpm Respiratory Rate 02 Sat Mode of Delivery 98 %/Room air You can now view a summary of your hospital visit from the comfort of your home through a free online portal called [employer] is a website that allows you to securely view your medical information including discharge summary, medications and follow-up visits. ??You can alsosend a secure electronic message to your doctor???s office to request appointments, renew medications or just ask a question. You can enroll at [email or web address] or register during your next office visit. [...] primary care provider, you may find a [facility] provider by calling [facility] Link at [phone]. [facility], in keeping with [facility] guidance, no longer requires face masks for [...] format to support your individualized medical care. Patient Care team information Care Team Personnel Name: Brayan Ahmadi MD Position: S Physician - Primary Care Member Role: PCP Address: Address: [address] [place] [address] [place] [address]- [place] Care Team Related Persons Name: BC BARRAGAN Address: home [address] [place] [address] [place] [address]
--- OUTSIDE RECORDS SUMMARY | 2024-02-25 00:36 | XMS_ITS | Continuity of Care Document ---
Author Organization [facility] Mohinder Fabiano Address [address] [place] [address]- Care Team Providers Care Washing Machine Installer Name Role Phone Purnima HENSLEY, Masood Hawng Primary Care Physician [phone] [facility] Date(s): 02/22/22 - 03/24/22 [facility] [place] Adult [address] [place] [address]- Allergies, Adverse Reactions, Alerts Substance Reaction Severity [...] [facility] 2Admin Note: pt declines 3Admin Note: given [...] 2 Refills, Maintenance, 09/07/21 11:38:00 EST, Tablet, [facility]/pharmacy #[id number], 170, cm, 09/06/21 9:17:00 EST, [...] 10.3(Confirm ed) 2, 3, 4 Active 1NE Adventism 2refer CPAP 3The apneas-hypopnea index was 10.3 [...] Personnel Name: Purnima HENSLEY, Masood Hwang Address: [address] [place] [address] [place] [address]- [place]
--- OUTSIDE RECORDS SUMMARY | 2024-02-25 00:36 | XMS_ITS | Continuity of Care Document ---
Author Organization [facility] Mohinder Fabiano Address [address] [place] [address]- Care Team Providers Care Chemistry Physics Teacher Name Role Phone Purnima HENSLEY, Masood Hwang Primary Care Physician [phone] Encounter [facility] Date(s): 03/03/22 - 04/02/22 [facility] Mohinder Adult [address] [place] [address]- Allergies, Adverse Reactions, Alerts Substance Reaction Severity [...] 1Result Comment: [04/20/2016] [facility] 2Admin Note: pt declines 3Admin Note: given at work 4Admin Note: historical Medications cyclobenzaprine 5 mg oral tablet See Instructions, Take 1 tablet every 8 hours as needed for muscle spasm, # 21 capsule, 0 Refills, Maintenance, 03/15/22 13:36:00 EDT, Tablet, [facility]/pharmacy #[id number], Partial fill upon patient request ifthe [...] 2 Refills, Maintenance, 09/07/21 11:38:00 EST, Tablet, [facility]/pharmacy #[id number], 170, cm, 09/06/21 9:17:00 EST, Height Start Date: 09/07/21 Status: Ordered Problem List Condition Confirmation Course [...] B12/folate Confirmed Active Onychomycosis toenails Confirmed Active Osteoarthritis of knee Confirmed Active Hx of ankle fusion 1 Confirmed 09/03/14 Active Sleep apnea ahi 10.3 2, 3, 4 Confirmed Active 1NE Zoroastrianism 2refer CPAP 3The apneas-hypopnea index was 10.3 [...] Name: Purnima HENSLEY, Masood Hwang Address: Address: [address] [place] [id number]
--- OUTSIDE RECORDS SUMMARY | 2024-02-25 00:36 | XMS_ITS | Continuity of Care Document ---
Author Organization [facility] Mohinder Fabiano lt Address [address] [place] [address]- Care Team Providers Care Upper Doubler Name Role Phone Brayan Ahmadi MD Primary Care Physician [facility]counter [facility] Date(s): 02/28/23 - 03/30/23 [facility] Brayan Vines Adult [address] [place] [address]- Allergies, Adverse Reactions, Alerts Substance Reaction Severity [...] Give n 1Admin Note: historical 2Result Comment: [facility] [phone] 3Result Comment: [04/20/2016] [facility] 4Admin Note: pt declines 5Admin Note: given [...] 10.3 2, 3, 4 Confirmed Active 1NE Hindu 2refer CPAP 3The apneas-hypopnea [...] Primary Care Member Role: PCP Address: Address: [address] [place] [address]- Care Team Related Persons Name: BC BARRAGAN Address: home [address] [place] [address]
--- OUTSIDE RECORDS SUMMARY | 2024-02-25 00:36 | XMS_ITS | Continuity of Care Document ---
Author Organization [facility] Brayan Vines Fabiano Address [address] [place] [address]- Care Team Providers Care Hired Hand Name Role Phone Brayan Ahmadi MD Primary Care Physician [facility]counter [facility] Date(s): 03/31/23 - 04/30/23 [facility] Brayan Vines Adult [address] [place] [address]- Allergies, Adverse Reactions, Alerts Substance Reaction Severity [...] Give n 1Admin Note: historical 2Result Comment: [facility] [phone] 3Result Comment: [04/20/2016] [facility] 4Admin Note: pt declines 5Admin Note: [...] 10.3 2, 3, 4 Confirmed Active 1NE Latter Day 2refer CPAP 3The apneas-hypopnea index was 10.3 [...] Team Personnel Name: Brayan Ahmadi MD Position: [facility] Physician - Primary Care Member Role: PCP Address: Address: [address] [place] [address]- Care Team Related Persons Name: BC BARRAGAN Address: home [address] [place] [address]
--- OUTSIDE RECORDS SUMMARY | 2024-02-25 00:36 | XMS_ITS | Continuity of Care Document ---
Author Organization [facility] Brayan Vines Fabiano Address [address] [place] [address]- Care Team Providers Care Tungsten Refiner Name Role Phone Brayan Ahmadi MD Primary Care Physician [facility]counter [facility] Date(s): 02/06/23 - 03/08/23 [facility] Brayan Vines Adult [address] [place] [address]- Allergies, Adverse Reactions, Alerts Substance Reaction Severity [...] Comment: [facility] [phone] 3Result Comment: [04/20/2016] [facility] 4Admin Note: pt declines 5Admin Note: [...] 10.3 2, 3, 4 Confirmed Active 1NE Roman Catholic 2refer CPAP 3The apneas-hypopnea index was 10.3 [...] Care Member Role: PCP Address: Address: [address] [place] [address]- Care Team Related Persons Name: BC BARRAGAN Address: home [address] [place] [address]
--- OUTSIDE RECORDS SUMMARY | 2024-02-25 00:36 | XMS_ITS | Continuity of Care Document ---
Author Organization [facility] Brayan Vines Fabiano lt Address [address] [place] [address]- Care Team Providers Care Personal Property Appraiser Name Role Phone Purnima HENSLEY, Masood Hwang Primary Care Physician Encounter [facility] Date(s): 06/05/20 - 07/05/20 [facility] Mohinder Adult [address] [place] [address]- Allergies, Adverse Reactions, Alerts Substance Reaction Severity [...] 4 04/25/01 Given 1Result Comment: [04/20/2016] [facility] 2Admin Note: pt declines 3Admin Note: [...] Sleep apnea(Confirmed) 2, 3, 4 Active 1NE Rastafarian 2refer CPAP 3The apneas-hypopnea index was 10.3 [...]
--- OUTSIDE RECORDS SUMMARY | 2024-02-25 00:36 | XMS_ITS | Continuity of Care Document ---
Author Organization [facility] Brayan Vines Fabiano lt Address [address] [place] [address]- Care Team Providers Care Computing Tutor Name Role Phone Masood Felton MD Primary Care Physician En[place] [facility] Date(s): 08/21/20 - 08/28/20 [facility] Mohinder Adult [address] [place] [address]- Encounter Diagnosis Asymmetrical hearing loss refer ENT(Discharge Diagnosis) - 08/21/20 Attending Physician: Masodo Felton MD Allergies, Adverse Reactions, Alerts Substance [...] 04/25/01 Given 1Result Comment: [04/20/2016] [facility] 2Admin Note: pt declines 3Admin Note: given at work 4Admin Note: historical Medications Viagra 100 mg oral tablet 1 tablet = 100 mg, By Mouth, Daily, 1 hour before sexual activity, # 5 tablet, 5 Refills, Maintenance, 04/01/16 9:22:26, Tablet Start Date: 10/02/15 Status: Ordered [...] Sleep apnea(Confirmed) 2, 3, 4 Active 1NE Orthodox 2refer CPAP 3The apneas-hypopnea index was 10.3 per hour. The REM AHI was 21.0 per hour and the NREM AHI was 7.7per hour. The supine AHI is 10.3 per hour. The number of arousals was 57 for an arousal index of 9.5. 4per wifel;refer polysomnogram Diagnosis Diagnosis Type Effective Dates Health Status Clinical Service Informant Asymmetrical hearing loss refer ENT Discharge Diagnosis 08/21/20 Vital Signs Most recent to oldest [Reference Range]: 1 Height 170.00 cm (08/21/20 9:26 AM) Weight 77.8 kg (08/21/20 9:26 AM) Oxygen Saturation [94-100 %] 97 % (08/21/20 9:26 AM) Pulse Rate [55-90 bpm] 62 bpm (08/21/20 9:26 AM) Body Mass Index [18.5-24.99] 26.92 *H* (08/21/20 9:26 AM) Blood Pressure [90-138/55-84 mm Hg] 110/ 62mm Hg (08/21/20 9:26 AM) Respiratory Rate [16-30 br/min] 16 br/mi n (08/21/20 9:26 AM) Temperature [96.8-100.4 DegF] 98.2 DegF (08/21/20 9:26 AM) Blood pressure sites Arm, left (08/21/20 9:26 AM) Temperature Route Oral (08/21/20 9:26 AM) Social History Social History Type Response Smoking Status Never smoker entered on: 07/16/13 Sex
--- OUTSIDE RECORDS SUMMARY | 2024-02-25 00:36 | XMS_ITS | Continuity of Care Document ---
Author Organization [facility] Brayan Vines Fabiano Address [address] [place] [address]- Care Team Providers Care Mobile Home Laborer Name Role Phone Brayan Ahmadi MD Primary Care Physician [facility] Date(s): 03/27/23 - 04/26/23 [facility] Brayan Vines Adult [address] [place] [address]- Allergies, Adverse Reactions, Alerts Substance Reaction Severity [...] Give n 1Admin Note: historical 2Result Comment: [facility] [phone] 3Result Comment: [04/20/2016] [facility] 4Admin Note: pt declines 5Admin Note: [...] 10.3 2, 3, 4 Confirmed Active 1NE Islam 2refer CPAP 3The apneas-hypopnea index was 10.3 [...] Team Personnel Name: Brayan Ahmadi MD Position: [facility] Physician - Primary Care Member Role: PCP Address: Address: [address] [place] [address]- Care Team Related Persons Name: BC BARRAGAN Address: home [address] [place] [address]
--- OUTSIDE RECORDS SUMMARY | 2024-02-25 00:36 | XMS_ITS | Continuity of Care Document ---
Author Organization [facility] Brayan Vines Fabiano lt Address [address] [place] [address]- Care Team Providers Care Crime Scene Evidence Technician Name Role Phone Masood Felton MD Primary Care Physician Encounter [facility] Date(s): 07/02/20 - 07/09/20 [facility] Brayan Vines Adult [address] [place] [address]- Encounter Diagnosis Clogged ear(Discharge Diagnosis) - 07/02/20 Attending Physician: Masood Felton MD Allergies, Adverse [...] 04/25/01 Given 1Result Comment: [04/20/2016] [facility] 2Admin Note: pt declines 3Admin Note: given at work 4Admin Note: historical Medications Amoxicillin By Mouth, Maintenance, DENTAL INFECTION, 05/10/19 8:31:33 EST Start Date: 11/8/19 Status: Ordered Viagra 100 mg oral tablet [...] Sleep apnea(Confirmed) 2, 3, 4 Active 1NE Latter Day 2refer CPAP 3The apneas-hypopnea index was 10.3 per hour. The REM AHI was 21.0 per hour and the NREM AHI was 7.7per hour. The supine AHI is 10.3 per hour. The number of arousals was 57 for an arousal index of 9.5. 4per wifel;refer polysomnogram Diagnosis Diagnosis Type Effective Dates Health Status Clini rehan Service Informant Clogged ear Discharge Diagnosis 07/02/20 Vital Signs Most recent to oldest [Reference Range]: 1 Height 170.00 cm (07/02/20 8:42 AM) Temperature [96.8-100.4 DegF] 98.4 DegF (07/02/20 8:42 AM) Social History Social History Type Response Smoking Status Never smoker entered on: 07/16/13 Sex
--- OUTSIDE RECORDS SUMMARY | 2024-02-25 00:36 | XMS_ITS | Continuity of Care Document ---
Author Organization [facility] Brayan Vines Fabiano Address [address] [place] [address]- Care Team Providers Care Spinal Surgeon Name Role Phone Brayan Ahmadi MD Primary Care Physician [phone] [facility]counter [facility] Date(s): 01/26/23 - 02/25/23 [facility] Brayan Vines Adult [address] [place] [address]- Allergies, Adverse Reactions, Alerts Substance Reaction Severity [...] Give n 1Admin Note: historical 2Result Comment: [facility] [phone] 3Result Comment: [04/20/2016] [facility] 4Admin Note: pt declines 5Admin Note: [...] 10.3 2, 3, 4 Confirmed Active 1NE Spiritism 2refer CPAP 3The apneas-hypopnea [...] Care Member Role: PCP Address: Address: [address] [place] [address]- Care Team Related Persons Name: BC BARRAGAN Address: home [address] [place] [address]
--- OUTSIDE RECORDS SUMMARY | 2024-02-25 00:36 | XMS_ITS | Continuity of Care Document ---
Author Organization [facility] Brayan Vines Fabaino Address [address] [place] [address]- Care Team Providers Care Assembler Faucets Name Role Phone Brayan Ahmadi MD Primary Care Physician [facility] Date(s): 03/24/23 - 04/23/23 [facility] Brayan Vines Adult [address] [place] [address]- Allergies, Adverse Reactions, Alerts Substance Reaction Severity [...] n 1Admin Note: historical 2Result Comment: [facility] [phone] 3Result Comment: [04/20/2016] [facility] 4Admin Note: pt declines 5Admin Note: given [...] 10.3 2, 3, 4 Confirmed Active 1NE Christian 2refer CPAP 3The apneas-hypopnea index was 10.3 [...] Team Personnel Name: Brayan Ahmadi MD Position: [facility] Physician - Primary Care Member Role: PCP Address: Address: [address] [place] [address]- Care Team Related Persons Name: BC BARRAGAN Address: home [address] [place] [address]
--- OUTSIDE RECORDS SUMMARY | 2024-02-25 00:36 | XMS_ITS | Continuity of Care Document ---
Author Organization [facility] Mohinder Fabiano lt Address [address] [place] [address]- Care Team Providers Care Radiology Physician Assistant Name Role Phone Brayan Ahmadi MD Primary Care Physician [facility] Date(s): 08/11/23 - 09/10/23 [facility] Brayan Vines Adult [address] [place] [address]- Attending Physician: Admtr, Ar8 Allergies, Adverse Reactions, [...] Pertussis (oldterm) 06/14/11 Give n 1Result Comment: [id number] Checklist completed 2Result Comment: [facility] [phone] 3Result Comment: [04/20/2016] [facility] 4Admin Note: pt declines 5Admin Note: historical 6Admin Note: given at work Medications Flonase 50 mcg/inh nasal spray 1 sprays = 50 mcg, Nares, Both, 2 times a day, # 16 Gm, 0 Refills, Maintenance, 07/24/23 11:05:00 EST, [place], [facility] # [facility], 1 sprays [...] 11 Refills, Maintenance, 03/27/23 10:39:00 EDT, Tablet, [facility] # [facility], Partial fill upon [...] 10.3 2, 3, 4 Confirmed Active 1NE Adventism 2refer CPAP 3The apneas-hypopnea [...] Status Never smoker entered on: 07/16/13 Sex EKG study * Event Display: EKG Authored Date: Cardiology * Addis Madrid: PERFORM Event Display: Cardiovascular Results Scanned Authored Date: [id number] Cardiology Outpatient Note * Vidya Levin.: PERFORM Event Display: Cardiology Note Office Authored Date: [id number] Radiology * Maye Curtis: PERFORM Event Display: Radiology Results Scanned Authored Date: [id number] Patient Care team information Care Team Personnel Name: Brayan Ahmadi MD Position: [facility] Physician - Primary Care Member Role: PCP Address: Address: [address] [place] [address]- Care Team Related Persons Name: BC BARRAGAN Address: home [address] [place] [address]
--- OUTSIDE RECORDS SUMMARY | 2024-02-25 00:36 | XMS_ITS | Continuity of Care Document ---
Author Organization [facility] Mohinder Fabiano lt Address [address] [place] [address]- Care Team Providers Care Dryer Feeder Name Role Phone Purnima HENSLEY, Masood Hwang Primary Care Physician Encounter [facility] Date(s): 07/12/21 - 08/11/21 [facility] [place] Adult [address] [place] [address]- Allergies, Adverse Reactions, Alerts Substance Reaction Severity [...] 04/25/01 Given 1Result Comment: [04/20/2016] [facility] 2Admin Note: pt declines 3Admin Note: given at work 4Admin Note: historical Medications Viagra 100 mg oral tablet 1 tablet = 100 mg, By Mouth, Daily, 1 hour before sexual activity, # 5 tablet, 5 Refills, Maintenance, 03/24/21 7:34:00 EDT, Tablet, [facility]/pharmacy #[id number], 170, cm, 03/24/21 7:25:00 EDT, Height [...] 10.3(Confirm ed) 2, 3, 4 Active 1NE Nondenominational 2refer CPAP 3The apneas-hypopnea index was 10.3 [...]
--- OUTSIDE RECORDS SUMMARY | 2024-02-25 00:36 | XMS_ITS | Continuity of Care Document ---
Author Organization [facility] Brayan Vines Fabiano lt Address [address] [place] [address]- Care Team Providers Care Manager Multicultural Name Role Phone Brayan Ahmadi MD Primary Care Physician [facility] Date(s): 07/25/23 - 08/24/23 [facility] Adult [address] [place] [address]- Allergies, Adverse Reactions, Alerts Substance Reaction Severity [...] Pertussis (oldterm) 06/14/11 Give n 1Result Comment: [id number] Checklist completed 2Result Comment: [facility] [phone] 3Result Comment: [04/20/2016] [facility] 4Admin Note: pt declines 5Admin Note: historical 6Admin Note: given at work Medications Flonase 50 mcg/inh nasal spray 1 sprays = 50 mcg, Nares, Both, 2 times a day, # 16 Gm, 0 Refills, Maintenance, 07/24/23 11:05:00 EST, [place], [facility] # [facility], 1 sprays [...] 11 Refills, Maintenance, 03/27/23 10:39:00 EDT, Tablet, [facility] # [facility], Partial fill upon patient [...] 10.3 2, 3, 4 Confirmed Active 1NE Protestant 2refer CPAP 3The apneas-hypopnea index was 10.3 [...] Team Personnel Name: Brayan Ahmadi MD Position: [facility] Physician - Primary Care Member Role: PCP Address: Address: [address] [place] [address]- Care Team Related Persons Name: BC BARRAGAN Address: [address] [address] [place] [address]
--- OUTSIDE RECORDS SUMMARY | 2024-02-25 00:36 | XMS_ITS | Continuity of Care Document ---
Author Organization [facility] Mohinder Fabiano lt Address [address] [place] [address]- Care Team Providers Care Business Performance Analyst Name Role Phone Daiana HENSLEY, Brayan England Primary Care Physician [phone] [facility] Date(s): 07/14/23 - 07/21/23 [facility] Adult [address] [place] [address]- Attending Physician: Not on Staff, Attending MD [...] Give n 1Admin Note: historical 2Result Comment: [facility] [id number] 3Result Comment: [04/20/2016] [facility] 4Admin Note: pt declines 5Admin [...] 10.3 2, 3, 4 Confirmed Active 1NE Religious 2refer CPAP 3The apneas-hypopnea index was 10.3 per hour. The REM AHI was 21.0 per hour and the NREM AHI was 7.7per hour. The supine AHI is 10.3 per hour. The number of arousals was 57 for an arousal index of 9.5. 4per wifel;refer polysomnogram Social History Social History Type Response Smoking Status Never smoker entered on: 07/16/13 Sex Note * Barb Clark RN: PERFORM, SIGN, VERIFY Em Aragon: SIGN Event Display: Clinical Summary Authored Date: Patient: BONY BARRAGAN Age: 62 years Sex: Male : 1960 Associated Diagnoses: None Author: Barb Clark RN Visit Information Type of Visit Action Taken: S: Patient presents today for?? c/o Left ear cerumen impaction. Patient report's Using?? Debrox for 6 days on and off and feels that his ear feels more blocked after using drops. B: Patient c/o: No fever, pain, redness or warmth to external ear or face. able to turn neck. No headache or pain in the ear. No hearing loss. But does report hearing feels a little more muffled. ear feels blocked congested . No ear drainage. On initial exam with Otoscope Bilateral?? ears observed ?? without any cerumen. No ear lavage preformed today. bilateral canals and TM visible. Left ear TM and ear canal observed with some pink discoloration and edema. No abnormal discharge. A: Per protocol: Protocol Used: Ear - Congestion (Adult) Protocol-Based Disposition: See in Office or Video Visit within 3 Days Video visit offer not recorded Positive Triage Question: * Ear congestion present > 48 hours * All higher-acuity triage questions were negative Care Advice Discussed: * Reasons To Call Back - Ear congestion lasts over 48 hour- - Ear pain or fever occurred - You become worse. R: Had ANN ELIZALDE come in to [place] Rm #7 who assessed Bilateral ears and confirmed the signs and symptoms consistent with patient having?? a?? Left ear infection. ANN ELIZALDE prescribed Augmentin Antibiotic, sent to pt's [facility]. Pt educated how to take medication and side effects to report. Pt advised to call if any further questions or concerns and if after taking antibiotic symptoms does not improve to call our office to make another OV to discuss further. Pt advised to go to UC/ED ifany worsening s/sx. pt stated understanding and agrees with plan. 30 Min spent with Pt. TAWANNA RN . Patient Care team information Care Team Personnel Name: Brayan Ahmadi MD Position: S Physician - Primary Care Member Role: PCP Address: Address: [address] [place] [address]- Care Team Related Persons Name: BC BARRAGAN Address: home [address] [place] [address]
--- OUTSIDE RECORDS SUMMARY | 2024-02-25 00:36 | XMS_ITS | Continuity of Care Document ---
Author Organization [facility] Brayan Vines Fabiano lt Address [address] [place] [address]- Care Team Providers Care Ranger Aide Name Role Phone Masood Felton MD Primary Care Physician Encounter [facility] Date(s): 08/12/20 - 09/16/20 [facility] Brayan Vines Adult [address] [place] [address]- Attending Physician: Masood Felton MD Allergies, Adverse [...] 04/25/01 Given 1Result Comment: [04/20/2016] [facility] 2Admin Note: pt declines 3Admin Note: given [...] Sleep apnea(Confirmed) 2, 3, 4 Active 1NE Confucianist 2refer CPAP 3The apneas-hypopnea index was 10.3 [...]
--- OUTSIDE RECORDS SUMMARY | 2024-02-25 00:36 | XMS_ITS | Continuity of Care Document ---
Author Organization [facility] Mohinder Fabiano lt Address [address] [place] [address]- Care Team Providers Care Dial Polisher Name Role Phone Brayan Ahmadi MD Primary Care Physician [phone] [facility] Date(s): 12/11/23 - 01/10/24 [facility] Adult [address] [place] [address]- Allergies, Adverse Reactions, Alerts Substance Reaction Severity [...] Pertussis (oldterm) 06/14/11 Give n 1Result Comment: [id number] Checklist completed 2Result Comment: [facility] [id number] 3Result Comment: [04/20/2016] [facility] 4Admin Note: pt declines 5Admin Note: historical 6Admin Note: given at work Medications amoxicillin 500 mg oral tablet 4 tablet = 2,000 mg, By Mouth, Once, Take 4 tablets 1 hour prior to dental appointment., # 4 tablet, 11 Refills, Soft Stop, 12/12/23 16:04:00 EDT, [facility], Partial fill upon patient request if the prescription is for a schedule II opioid d... Start Date: 12/12/23 Status: Ordered Multivitamin Daily, 0 Refills, Maintenance, 04/08/22 8:04:00 EDT, Partial fill upon patient request if the prescription is for a schedule II opioid drug. Start Date: 04/08/22 Status: Ordered tadalafil 20 mg oral tablet 1 tablet = 20 mg, By Mouth, Daily, PRN as needed, 1 hour before sexual activity, # 5 tablet, 11 Refills, Maintenance, 03/27/23 10:39:00 EDT, Tablet, [facility], Partial fill upon patient [...] Team Personnel Name: Brayan Ahmadi MD Position: [facility] Physician - Primary Care Member Role: PCP Address: Address: [address] [place] [address]- Care Team Related Persons Name: BC BARRAGAN Address: [address] [place] [address]
--- OUTSIDE RECORDS SUMMARY | 2024-02-25 00:36 | XMS_ITS | Continuity of Care Document ---
Author Organization [facility] Mohinder Fabiano lt Address [address] [place] [address]- Care Team Providers Care Incendiaries Supervisor Name Role Phone Purnima HENSLEY, Masood Hwang Primary Care Physician [phone] Encounter [facility] Date(s): 05/25/21 - 06/24/21 [facility] Mohinder Adult [address] [place] [address]- Allergies, Adverse Reactions, Alerts Substance Reaction Severity [...] 04/25/01 Given 1Result Comment: [04/20/2016] [facility] 2Admin Note: pt declines 3Admin Note: given at work 4Admin Note: historical Medications Viagra 100 mg oral tablet 1 tablet = 100 mg, By Mouth, Daily, 1 hour before sexual activity, # 5 tablet, 5 Refills, Maintenance, 03/24/21 7:34:00 EDT, Tablet, [facility]/pharmacy #[id number], 170, cm, 03/24/21 7:25:00 EDT, Height [...] 10.3(Confirm ed) 2, 3, 4 Active 1NE Yazidi 2refer CPAP 3The apneas-hypopnea index was 10.3 [...]
--- OUTSIDE RECORDS SUMMARY | 2024-02-25 00:36 | XMS_ITS | Continuity of Care Document ---
Author Organization [facility] Mohinder Fabiano lt Address [address] [place] [address]- Care Team Providers Care Feeder Driver Name Role Phone Purnima HENSLEY, Masood Hwang Primary Care Physician Encounter [facility] Date(s): 05/25/21 - 06/24/21 [facility] Mohinder Adult [address] [place] [address]- Allergies, Adverse Reactions, Alerts Substance Reaction Severity [...] 04/25/01 Given 1Result Comment: [04/20/2016] [facility] 2Admin Note: pt declines 3Admin Note: given at work 4Admin Note: historical Medications Viagra 100 mg oral tablet 1 tablet = 100 mg, By Mouth, Daily, 1 hour before sexual activity, # 5 tablet, 5 Refills, Maintenance, 03/24/21 7:34:00 EDT, Tablet, [facility]/pharmacy #[id number], 170, cm, 03/24/21 7:25:00 EDT, Height [...] 10.3(Confirm ed) 2, 3, 4 Active 1NE Hoahaoism 2refer CPAP 3The apneas-hypopnea index was 10.3 [...]
--- OUTSIDE RECORDS SUMMARY | 2024-02-25 00:36 | XMS_ITS | Continuity of Care Document ---
Author Organization [facility] Mohinder Fabiano lt Address [address] [place] [address]- Care Team Providers Care Melter Assistant Name Role Phone Purnima HENSLEY, Masood Hwang Primary Care Physician [facility] Date(s): 03/25/21 - 04/24/21 [facility]inder Adult [address] [place] [address]- Allergies, Adverse Reactions, Alerts Substance Reaction Severity [...] 04/25/01 Given 1Result Comment: [04/20/2016] [facility] 2Admin Note: pt declines 3Admin Note: [...] 10.3(Confirm ed) 2, 3, 4 Active 1NE Uatsdin 2refer CPAP 3The apneas-hypopnea index was 10.3 [...]
--- OUTSIDE RECORDS SUMMARY | 2024-02-25 00:36 | XMS_ITS | Continuity of Care Document ---
Author Organization [facility] Address [address] [place] [address]- Care Team Providers Care Inweaver Name Role Phone Masood Felton MD Primary Care Physician [phone] Encounter [facility] Date(s): 03/13/20 - 04/22/[address] [address]- [facility] Attending Physician: Masood Felton MD Admitting Physician: Masood Felton MD Referring Physician: Nahun SUPERVISOR [employer] Jeniffer Allergies, Adverse Reactions, Alerts Substance Reaction Severity [...] 04/25/01 Given 1Result Comment: [04/20/2016] [facility] 2Admin Note: pt declines 3Admin Note: [...] b12 folate ldh, haptoglobin,retics 4macrocytosis workup 5NE Sabianist 6refer CPAP 7The apneas-hypopnea index was 10.3 [...]
--- OUTSIDE RECORDS SUMMARY | 2024-02-25 00:36 | XMS_ITS | Continuity of Care Document ---
Author Organization [facility] Address [address] [facility] [place] [address]- Care Team Providers Care Farm Implement Engine Mechanic Name Role Phone Purnima HENSLEY, Masood Hwang Primary Care Physician [facility] Date(s): 09/06/21 - 10/06/21 [facility] [address] [place] [address]- Attending Physician: Daryl Menjivar Admitting Physician: AdmtrDaryl Referring Physician: AdmtrDaryl Allergies, Adverse Reactions, Alerts Substance Reaction Severity [...] 04/25/01 Given 1Result Comment: [04/20/2016] [facility] 2Admin Note: pt declines 3Admin [...] 10.3(Confirm ed) 2, 3, 4 Active 1NE Islam 2refer CPAP 3The apneas-hypopnea [...]
--- OUTSIDE RECORDS SUMMARY | 2024-02-25 00:37 | XMS_ITS | Continuity of Care Document ---
Author Organization [facility] Brayan Vines Fabiano lt Address [address] [place] [address]- Care Team Providers Care Wellness Spa Manager Name Role Phone Brayan Ahmadi MD Primary Care Physician [phone] [facility] Date(s): 07/21/23 - 08/20/23 [facility] Adult [address] [place] [address]- Allergies, Adverse Reactions, Alerts Substance Reaction Severity [...] Pertussis (oldterm) 06/14/11 Give n 1Result Comment: [id number] Checklist completed 2Result Comment: [facility] [id number] 3Result Comment: [04/20/2016] [facility] 4Admin Note: pt declines 5Admin Note: historical 6Admin Note: given at work Medications Flonase 50 mcg/inh nasal spray 1 sprays = 50 mcg, Nares, Both, 2 times a day, # 16 Gm, 0 Refills, Maintenance, 07/24/23 11:05:00 EST, [place], [facility], 1 sprays Nares, [...] mL, 0 Refills, Maintenance, 08/07/23 9:51:00 EST, [facility], [place] Date: 08/21/23, 240... Start Date: 08/07/23 Status: Ordered tadalafil 20 mg oral tablet 1 tablet = 20 mg, By Mouth, Daily, PRN as needed, 1 hour before sexual activity, # 5 tablet, 11 Refills, Maintenance, 03/27/23 10:39:00 EDT, Tablet, [facility], Partial fill upon [...] 10.3 2, 3, 4 Confirmed Active 1NE Cheondoism 2refer CPAP 3The apneas-hypopnea index was 10.3 [...] Team Personnel Name: Brayan Ahmadi MD Position: [facility] Physician - Primary Care Member Role: PCP Address: Address: [address] [facility] [place] [address]- Care Team Related Persons Name: BC BARRAGAN Address: home [address] [place] [address]
--- OUTSIDE RECORDS SUMMARY | 2024-02-25 00:37 | XMS_ITS | Continuity of Care Document ---
Author Organization [facility] Brayan Vines Fabiano Address [address] [place] [address]- Care Team Providers Care Digital Content Marketing Manager Name Role Phone Brayan Ahmadi MD Primary Care Physician [phone] [facility] Date(s): 03/27/23 - 04/26/23 [facility] Brayan Vines Adult [address] [place] [address]- Allergies, Adverse Reactions, Alerts Substance Reaction Severity [...] Give n 1Admin Note: historical 2Result Comment: [facility] [id number] 3Result Comment: [04/20/2016] [facility] 4Admin Note: pt declines 5Admin [...] 10.3 2, 3, 4 Confirmed Active 1NE Zoroastrian 2refer CPAP 3The apneas-hypopnea index was 10.3 [...] Team Personnel Name: Brayan Ahmadi MD Position: [facility] Physician - Primary Care Member Role: PCP Address: Address: [address] [place] [address]- Care Team Related Persons Name: BC BARRAGAN Address: home [address] [place] [address]
--- OUTSIDE RECORDS SUMMARY | 2024-02-25 00:37 | XMS_ITS | Continuity of Care Document ---
Author Organization [facility] Brayan Vines Fabiano lt Address [address] [place] [address]- Care Team Providers Care Identity Management Developer Name Role Phone Purnima HENSLEY, Masood Hwang Primary Care Physician Encounter [facility] Date(s): 06/02/20 - 07/02/20 [facility] Brayan Vines Adult [address] [place] [address]- Allergies, Adverse Reactions, Alerts Substance Reaction Severity [...] 04/25/01 Given 1Result Comment: [04/20/2016] [facility] 2Admin Note: pt declines 3Admin [...] Sleep apnea(Confirmed) 2, 3, 4 Active 1NE Adventist 2refer [...]
--- OUTSIDE RECORDS SUMMARY | 2024-02-25 00:37 | XMS_ITS | Continuity of Care Document ---
Author Organization [facility] Mohinder Fabiano lt Address [address] [place] [address]- Care Team Providers Care Commercial Interior Designer Name Role Phone Purnima HENSLEY, Masood Hwang Primary Care Physician Encounter [facility] Date(s): 05/25/21 - 06/24/21 [facility] Adult [address] [place] [address]- Attending Physician: Admtr, Ar8 Allergies, Adverse Reactions, [...] 04/25/01 Given 1Result Comment: [04/20/2016] [facility] 2Admin Note: pt declines 3Admin Note: [...] 10.3(Confirm ed) 2, 3, 4 Active 1NE Confucianism 2refer CPAP 3The apneas-hypopnea index was 10.3 [...]
--- OUTSIDE RECORDS SUMMARY | 2024-02-25 00:37 | XMS_ITS | Continuity of Care Document ---
Author Organization [facility] Address [address] [place] [address]- Care Team Providers Care Middle School English Teacher Name Role Phone Purnima HENSLEY, Masood Hwang Primary Care Physician [place] [facility] Date(s): 03/23/20 - 04/22/[address] [address]- [facility] Attending Physician: AdmDaryl mosquera Admitting Physician: AdmtrDaryl Referring Physician: Admtr, Ar8 Allergies, Adverse Reactions, Alerts [...] 04/25/01 Given 1Result Comment: [04/20/2016] [facility] 2Admin Note: pt declines 3Admin [...] b12 folate ldh, haptoglobin,retics 4macrocytosis workup 5NE Uatsdin 6refer CPAP 7The apneas-hypopnea index was 10.3 [...]
--- OUTSIDE RECORDS SUMMARY | 2024-02-25 00:37 | XMS_ITS | Continuity of Care Document ---
Author Organization [facility] Mohinder Fabiano lt Address [address] [place] [address]- Care Team Providers Care Management And Budget Analyst Name Role Phone Brayan hAmadi MD Primary Care Physician [phone] [facility] Date(s): 11/01/23 - 12/01/23 [facility] Adult [address] [place] [address]- Allergies, Adverse Reactions, Alerts Substance Reaction Severity [...] Omero rded influenza virus vaccine, inactivated 04/13/14 Omreo rded influenza virus vaccine, inactivated 07/16/13 Gi [...] Pertussis (oldterm) 06/14/11 Give n 1Result Comment: [id number] Checklist completed 2Result Comment: [facility] [id number] 3Result Comment: [04/20/2016] [facility] 4Admin Note: pt declines 5Admin Note: [...] 10.3 2, 3, 4 Confirmed Active 1NE Tenriism 2refer CPAP 3The apneas-hypopnea index was 10.3 [...] Primary Care Member Role: PCP Address: Address: [address] [place] [address]- Care Team Related Persons Name: BC BARRAGAN Address: home [address] [place] [address]
--- OUTSIDE RECORDS SUMMARY | 2024-02-25 00:37 | XMS_ITS | Continuity of Care Document ---
Author Organization [facility] Kirill Fabiano lt Address [address] [place] [address]- Care Team Providers Care Boom Tender Name Role Phone Brayan Ahmadi MD Primary Care Physician [phone] [place] [facility] Date(s): 10/14/22 - 10/21/22 [facility] Adult [address] [place] [address]- Encounter Diagnosis Sleep apnea ahi 10.3(Discharge Diagnosis) - 10/14/22 ED (erectile dysfunction)(Discharge Diagnosis) - 10/14/22 Attending Physician: Brayan Ahmadi MD Allergies, Adverse [...] Give n 1Admin Note: historical 2Result Comment: [facility] [phone] 3Result Comment: [04/20/2016] [facility] 4Admin Note: pt declines 5Admin Note: [...] 10.3 2, 3, 4 Confirmed Active 1NE Yarsani 2refer CPAP 3The apneas-hypopnea index was 10.3 per hour. The REM AHI was 21.0 per hour and the NREM AHI was 7.7per hour. The supine AHI is 10.3 per hour. The number of arousals was 57 for an arousal index of 9.5. 4per wifel;refer polysomnogram Diagnosis Diagnosis Type Effective Dates Health Status Cl inical Service Informant Sleep apnea ahi 10.3 Discharge Diagnosis 10/14/22 ED (erectile dysfunction) Discharge Diagnosis 10/14/22 Vital Signs Most recent to oldest [Reference Range]: 1 Height 170.00 cm (10/14/22 9:18 AM) Weight 77.6 kg (10/14/22 9:18 AM) Oxygen Saturation [94-100 %] 98 % (10/14/22 9:18 AM) Pulse Rate [55-90 bpm] 77 bpm (10/14/22 9:18 AM) Body Mass Index [18.5-24.99 kg/m2] 26.85 kg/m2 *H* (10/14/22 9:18 AM) Blood Pressure [90-138/55-84 mm Hg] 110/ 72mm Hg (10/14/22 9:18 AM) Mode of Delivery (Oxygen) Room air (10/14/22 9:18 AM) Blood pressure sites Arm, left (10/14/22 9:18 AM) Weight Obtained Via Standing scale (10/14/22 9:18 AM) Social History Social History Type Response Smoking Status Never smoker entered on: 07/16/13 Sex Note * Rufina Matias: PERFORM, SIGN, VERIFY Event Display: Patient Education/Instruction Authored Date: [id number] [facility] *[facility] So Kirill Brown Clinical Summary Name BONY BARRAGAN Age 62 Years 1960 PCP Brayan Ahmadi MD [id number] Visit Date 10/14/2022 08:49:00 Additional Instructions: Scheduled Appointments?? Future Appointments ?No Future Appointments Scheduled Follow-Up Instructions ?? With: Address: When: Brayan Ahmadi MD In 1 year Comments: Physical examination Diagnosis Male erectile dysfunction, unspecified; Sleep apnea, unspecified Medications: Please continue your medications until treatment is completed or stopped by your provider. Discuss any questions related to medications with your provider. New Medications [facility], [address] [place], [place] [id number], [phone] tadalafil (tadalafil 5 mg oral tablet) 1 tab(s) Oral Daily for 90 Days. 1 hour before sexual activity. Refills: 3. Next Dose: Medications to Continue with No Changes These medications were not printed or sent to your pharmacy Multivitamin Daily. Next Dose: Allergy Info:?? sulfamethoxazole Medications Given This Visit Medication Dose Route tetanus-diphtheria toxoids (Td) (tetanus-diphtheria toxoids (Td) vacc) 0.5 mL Intramuscular Future Orders ?Comprehensive Metabolic Panel? Order Date:10/14/22?- Complete on or after?10/14/22 ?Thyroid Panel? Order Date:10/14/22?- Complete on or after?10/14/22 ?Testosterone Free (Adult Male)? Order Date:10/14/22?- Complete on or after?10/14/22 ?CBC? Order Date:10/14/22?- Complete on or after?10/14/22 ?Lipid Panel? Order Date:10/14/22?- Complete on or after?10/14/22 ?PSA? Order Date:10/14/22?- Complete on or after?10/14/22 Vital Signs Height 170.00 cm Weight 77.6 kg BMI 26.85 kg/m2 Blood Pressure 110 mm Hg/72 mm Hg Temperature Pulse Rate 77 bpm Respiratory Rate 02 Sat Mode of Delivery 98 %/Room air You can now view a summary of your hospital visit from the comfort of your home through a free online portal called [employer]. [employer] is a website that allows you to securely view your medical information including discharge summary, medications and follow-up visits. ??You can alsosend a secure electronic message to your doctor???s office to request appointments, renew medications or just ask a question. You can enroll at [email or web address] or register during your next office visit. [...] primary care provider, you may find a [facility] provider by calling [facility] [employer] at [phone]. For information about the plan of care [...] Care Physician Member Role: PCP Address: Address: [address] [place], [place] [address] [address]- Care Team Related Persons Name: BC BARRAGAN Address: home [address] [place] [address]
--- OUTSIDE RECORDS SUMMARY | 2024-02-25 00:37 | XMS_ITS | Continuity of Care Document ---
Author Organization [facility] Brayan Vines Fabiano lt Address [address] [place] [address]- Care Team Providers Care Automobile Service Writer Name Role Phone Purnima HENSLEY, Masood Hwang Primary Care Physician Encounter [facility] Date(s): 08/14/20 - 09/13/20 [facility] Adult [address] [place] [address]- Allergies, Adverse Reactions, Alerts Substance Reaction Severity [...] 04/25/01 Given 1Result Comment: [04/20/2016] [facility] 2Admin Note: pt declines [...] Sleep apnea(Confirmed) 2, 3, 4 Active 1NE Quaker 2refer CPAP 3The apneas-hypopnea index was 10.3 [...]
--- OUTSIDE RECORDS SUMMARY | 2024-02-25 00:37 | XMS_ITS | Continuity of Care Document ---
Author Organization [facility] Address [address] [place] [address]- Care Team Providers Care Insulating Machine Operator Name Role Phone Purnima HENSLEY, Masood Hwang Primary Care Physician Encounter [facility] Date(s): 07/11/19 - 07/21/[address] [address]- [facility] Attending Physician: AdmDaryl mosquera Admitting Physician: AdmDaryl mosquera Referring Physician: Admtr, Luis8 Allergies, Adverse Reactions, Alerts Substance Reaction Severity [...] 1Result Comment: [04/20/2016] [facility] 2Admin Note: pt declines 3Admin Note: [...] b12 folate ldh, haptoglobin,retics 4macrocytosis workup 5NE Yarsanism 6refer CPAP 7The apneas-hypopnea index was 10.3 [...]
--- OUTSIDE RECORDS SUMMARY | 2024-02-25 00:37 | XMS_ITS | Continuity of Care Document ---
Author Organization [facility] [place] Fabiano lt Address [address] [place] [address]- Care Team Providers Care Chlorination Operator Name Role Phone Masood Felton MD Primary Care Physician [place] [facility] [place] 08/19/20 [facility] [place] Adult [address] [place] [address]- Encounter Diagnosis Tinnitus of right ear(Discharge Diagnosis) - 08/12/20 Attending Physician: Masood Felton MD Allergies, Adverse [...] 04/25/01 Given 1Result Comment: [04/20/2016] [facility] 2Admin Note: pt declines 3Admin [...] Sleep apnea(Confirmed) 2, 3, 4 Active 1NE Presybeterian 2refer CPAP 3The apneas-hypopnea index was 10.3 per hour. The REM AHI was 21.0 per hour and the NREM AHI was 7.7per hour. The supine AHI is 10.3 per hour. The number of arousals was 57 for an arousal index of 9.5. 4per wifel;refer polysomnogram Diagnosis Diagnosis Type Effective Dates Health Status Cl inical Service Informant Tinnitus of right ear Discharge Diagnosis 08/12/20 Vital Signs Most recent to oldest [Reference Range]: 1 Height 170.00 cm (08/12/20 3:04 PM) Social History Social History Type Response Smoking Status Never smoker entered on: 07/16/13 Sex
--- OUTSIDE RECORDS SUMMARY | 2024-02-25 00:37 | XMS_ITS ---
Author Organization [facility] Address [address] [place] [address] Care Team Providers Care Metal Fabricator Helper Name Role Phone Brayan Ahmadi MD Primary Care Provider David Paul [phone] REASON FOR VISIT Last Visit PCP 04/2022 Encounters Encounter Location Date Provider Diagnosis [facility] [address] [place] [address] 12/14/2022 David Chaudhry Primary osteoarthritis, right ankle and foot M19.071 ; Primary osteoarthritis, left ankle and foot M19.072 ; Tinea unguium B35.1 and Metatarsalgia, right foot M77.41 ASSESSMENTS Encounter Date Diagnosis Assessment Notes Treatment Notes Treatment Clinical Notes 12/14/2022 Primary osteoarthritis, right ankle and foot (ICD-10 - M19.071) 12/14/2022 Primary osteoarthritis, left ankle and foot (ICD-10 - M19.072) 12/14/2022 Tinea unguium (ICD-10 - B35.1) 12/14/2022 Metatarsalgia, right foot (ICD-10 - M77.41) PLAN OF TREATMENT Next Appt Details Follow Up: 6 Months, Reason: Progress Notes * Examination Category Sub-Category Detail Notes Neuroma Pain PALPATION: No interspace pa in noted on palpation Neurological SENSORY: Neurological exa m demonstrates pop dorsum left 2nd mt-cun and plantar right 5th mtpj BABINSKI REFLEX: absent TINEL'S COMPRESSION: Negative tarsal gideon erinn, kunal pedis, and medial calcaneal nerves B/L Dermatologic SKIN FINDINGS: Skin exam reveal s Keratotic lesion(s) located at, sub 5th mtpj Orthopedic MUSCLE STRENGTH: 5/5 all groups in a symmetrical fashion , B/L General Examination GENERAL APPEARANCE: pleasant , alert, well nourished, well developed, well hydrated, with good attention to hygene/body habitus, and in no acute distress ORIENTED: person,place, and ti me Vascular DP PULSES: 2/4, B/L PT PULSES: 2/4, B/L CAPILLARY FILL TIME: 3 secs. per digit, B/L SKIN TEMPERTURE GRADIENT OF THE LOWER EXTERMITIES: warm to cool, proximal to distal, B/L HAIR GROWTH/TEXTURE/ELASTICITY/TURGOR: n ormal, B/L EDEMA: no edema TELANGECTASIA: absent VARICOSITIES: absent PIGMENTATION: normal, B/L Nails NAILS are: Elongated, overg rown, dystrophic, lytic, greater than 3mm thick, discolored and friable with crumbly malodorous subungual debris, 1-5 Right foot, proximal clearing of nail __10__ % History and Physical Notes * HPI (History of Present Illness) Category Sub-Category Detail Notes Skin problems Nature: discolored Location: Right , Toe(s) Duration: several years Onset/Cause: hx of ankle fusion a nd prolonged cast mobilization Course: improved Treatments: compliant with F7 Misc: pt had total knee im plant with Dr. Cagle at [facility] Foot Pain Aggrevated: any pressure, st anding, walking, barefoot walking Onset/Cause: hx of right ankle fu 2013 at [facility] Course: improved Duration: 1 year Nature: aching, sharp, dull Treatments: debridement; use of topical pain cream Quality/Severity 3, scale 1-10--right , 2, scale 1-10 left midfoot Location Bottom, Forefoot, Ou tside, Right and top left midfoot
--- OUTSIDE RECORDS SUMMARY | 2024-02-25 00:37 | XMS_ITS | Continuity of Care Document ---
Author Organization [facility] Address [address] [place] [address]- Care Team Providers Care Electrifier Operator Name Role Phone Brayan Ahmadi MD Primary Care Physician [phone] Encounter [facility] [place] Date(s): 08/07/23 - 09/06/23 [facility] [address] [place] [address] [place] Allergies, Adverse Reactions, Alerts Substance Reaction Severity [...] Pertussis (oldterm) 06/14/11 Give n 1Result Comment: [id number] Checklist completed 2Result Comment: [facility] [id number] 3Result Comment: [04/20/2016] [facility] 4Admin Note: pt declines 5Admin Note: historical 6Admin Note: given at work Medications Flonase 50 mcg/inh nasal spray 1 sprays = 50 mcg, Nares, Both, 2 times a day, # 16 Gm, 0 Refills, Maintenance, 07/24/23 11:05:00 EST, [place], [facility], 1 sprays [...] 10.3 2, 3, 4 Confirmed Active 1NE Denominational 2refer CPAP 3The apneas-hypopnea index was 10.3 [...] Team Personnel Name: Brayan Ahmadi MD Position: [facility] Physician - Primary Care Member Role: PCP Address: Address: [address] [place] [address]- [place] Care Team Related Persons Name: BC BARRAGAN Address: [address] [address]
--- OUTSIDE RECORDS SUMMARY | 2024-02-25 00:37 | XMS_ITS | Continuity of Care Document ---
Author Organization [facility] Address [address] [facility] [place] [address]- Care Team Providers Care Conveyor Technician Name Role Phone Masood Felton MD Primary Care Physician Encounter [facility] [place] Date(s): 09/06/21 - 09/13/21 [facility] [address] [place] [address]- Attending Physician: Martin Man MD Admitting Physician: Martin Man MD Referring Physician: Masood Felton MD Allergies, [...] 04/25/01 Given 1Result Comment: [04/20/2016] [facility] 2Admin Note: pt declines 3Admin Note: given [...] 10.3(Confirm ed) 2, 3, 4 Active 1NE Judaism 2refer CPAP 3The apneas-hypopnea index was 10.3 per hour. The REM AHI was 21.0 per hour and the NREM AHI was 7.7per hour. The supine AHI is 10.3 per hour. The number of arousals was 57 for an arousal index of 9.5. 4per wifel;refer polysomnogram Vital Signs Most recent to oldest [Reference Range]: 1 Height 170.00 cm (09/06/21 9:17 AM) Weight 78.9 kg (09/06/21 9:17 AM) Pulse Rate [55-90 bpm] 75 bpm (09/06/21 9:17 AM) Body Mass Index [18.5-24.99] 27.3 *H* (09/06/21 9:17 AM) Blood Pressure [90-138/55-84 mm Hg] 158/ 86mm Hg *H* (09/06/21 9:17 AM) Temperature [96.8-100.4 DegF] 97 DegF (09/06/21 9:17 AM) Blood pressure sites Arm, right (09/06/21 9:17 AM) Temperature Route Oral (09/06/21 9:17 AM) Weight Obtained Via Standing scale (09/06/21 9:17 AM) Social History Social History Type Response Smoking Status Never smoker entered on: 07/16/13 Sex
--- OUTSIDE RECORDS SUMMARY | 2024-02-25 00:37 | XMS_ITS ---
Author Organization [facility] Address [address] [place] [address] Care Team Providers Care Clerical Receptionist Name Role Phone Brayan Ahmadi MD Primary Care Provider David Paul [phone] [place], Last Visit PCP 04/2022 Encounters Encounter Location Date Provider Diagnosis [facility] [address] [place] [address] 12/12/2022 David Chaudhry Primary osteoarthritis, right ankle and foot M19.071 ; Primary osteoarthritis, left ankle and foot M19.072 ; Tinea unguium B35.1 and Metatarsalgia, right foot M77.41 ASSESSMENTS Encounter Date Diagnosis Assessment Notes Treatment Notes Treatment Clinical Notes 12/12/2022 Primary osteoarthritis, right ankle and foot (ICD-10 - M19.071) 12/12/2022 Primary osteoarthritis, left ankle and foot (ICD-10 - M19.072) 12/12/2022 Tinea unguium (ICD-10 - B35.1) 12/12/2022 Metatarsalgia, right foot (ICD-10 - M77.41) PLAN [...] knee im plant with Dr. Cagle at [facility] Foot Pain Aggrevated: any pressure, st anding, walking, barefoot walking Onset/Cause: hx of right ankle fu 2013 at [facility] Course: improved Duration: 1 year Nature: aching, sharp, dull Treatments: debridement; use of topical pain cream Quality/Severity 3, scale 1-10--right , 2, scale 1-10 left midfoot Location Bottom, Forefoot, Ou tside, Right and top left midfoot
--- OUTSIDE RECORDS SUMMARY | 2024-02-25 00:37 | XMS_ITS ---
Author Organization [facility] Address [address] [facility] [place] [address] Care Team Providers Care Bilingual Secretary Name Role Phone Brayan Ahmadi MD Primary Care Provider David Paul Unavailable [phone] REASON FOR VISIT PT Appt Encounters Encounter Location Date Provider Diagnosis [facility] [address] [facility] [address] 12/14/2022 David Chaudhry PLAN OF TREATMENT No Information
--- OUTSIDE RECORDS SUMMARY | 2024-02-25 00:37 | XMS_ITS | Continuity of Care Document ---
Author Organization [facility] Mohinder Fabiano lt Address [address] [place] [address]- Care Team Providers Care Teacher Learning Disabled Name Role Phone Masood Felton MD Primary Care Physician Encounter [facility] [place] Date(s): 06/02/20 - 06/09/20 [facility] Adult [address] [place] [address]- Encounter Diagnosis Tick bite(Discharge Diagnosis) - 06/02/20 Attending Physician: Masood Felton MD Allergies, Adverse Reactions, Alerts Substance Reaction Severity Status sulfamethoxazole Active Immunizations Given and Recorded Vaccine Date Status Refusal Reason Influenza Virus Vaccine (oldterm) 05/12/20 Recorde d influenza virus vaccine, inactivated 1 04/19/16 Re corded influenza virus vaccine, inactivated 05/04/15 Omero rded influenza virus vaccine, inactivated 04/13/14 Omero rded influenza virus vaccine, inactivated 2 07/16/13 Gi bella Afluria (oldterm) 3 05/01/12 Given Tet/Diphth/Acel, Pertussis (oldterm) 06/14/11 Give n tetanus-diphtheria toxoids (Td) 4 04/25/01 Given 1Result Comment: [04/20/2016] [facility] 2Admin Note: pt declines 3Admin Note: given [...] Sleep apnea(Confirmed) 2, 3, 4 Active 1NE Religious 2refer CPAP 3The apneas-hypopnea index was 10.3 per hour. The REM AHI was 21.0 per hour and the NREM AHI was 7.7per hour. The supine AHI is 10.3 per hour. The number of arousals was 57 for an arousal index of 9.5. 4per wifel;refer polysomnogram Diagnosis Diagnosis Type Effective Dates Health Status Clini rehan Service Informant Tick bite Discharge Diagnosis 06/02/20 Vital Signs Most recent to oldest [Reference Range]: 1 Height 170.00 cm (06/02/20 2:38 PM) Social History Social History Type Response Smoking Status Never smoker entered on: 07/16/13 Sex
--- OUTSIDE RECORDS SUMMARY | 2024-02-25 00:37 | XMS_ITS | Continuity of Care Document ---
Author Organization [facility] Mohinder Fabiano lt Address [address] [place] [address]- Care Team Providers Care Process Design Engineer Name Role Phone Purnima HENSLEY, Masood Hwang Primary Care Physician [phone] Encounter [facility] Date(s): 10/29/20 - 11/28/20 [facility] [place] Adult [address] [place] [address]- Allergies, Adverse Reactions, Alerts Substance Reaction Severity [...] Given 1Result Comment: [04/20/2016] [facility] 2Admin Note: pt declines 3Admin [...] Sleep apnea(Confirmed) 2, 3, 4 Active 1NE Yazidism 2refer CPAP 3The apneas-hypopnea index was 10.3 [...]
--- OUTSIDE RECORDS SUMMARY | 2024-02-25 00:37 | XMS_ITS | Continuity of Care Document ---
Author Organization [facility] [place] Fabiano lt Address [address] [place] [address]- Care Team Providers Care German Teacher Name Role Phone Brayan Ahmadi MD Primary Care Physician Encounter [facility] Date(s): 08/10/23 - 09/09/23 [facility] [place] [place] [address] [place] [address]- Allergies, Adverse Reactions, Alerts Substance Reaction Severity [...] Pertussis (oldterm) 06/14/11 Give n 1Result Comment: [id number] Checklist completed 2Result Comment: [facility] [id number] 3Result Comment: [04/20/2016] [facility] 4Admin Note: pt declines 5Admin Note: historical 6Admin Note: given at work Medications Flonase 50 mcg/inh nasal spray 1 sprays = 50 mcg, Nares, Both, 2 times a day, # 16 Gm, 0 Refills, Maintenance, 07/24/23 11:05:00 EST, [place], [facility], 1 sprays [...] 11 Refills, Maintenance, 03/27/23 10:39:00 EDT, Tablet, [facility] # [facility], Partial fill upon patient [...] 10.3 2, 3, 4 Confirmed Active 1NE Samaritan 2refer CPAP 3The apneas-hypopnea index was 10.3 [...] Name: Brayan Ahmadi MD Position: [facility] Physician - Primary Care Member Role: PCP Address: Address: [address] [place] [address]- Care Team Related Persons Name: BC BARRAGAN Address: [address] [place] [address]
--- OUTSIDE RECORDS SUMMARY | 2024-02-25 00:37 | XMS_ITS | Continuity of Care Document ---
Author Organization [facility] Mohinder Fabiano lt Address [address] [place] [address]- Care Team Providers Care Grade Foreman Name Role Phone Purnima HENSLEY, Masood Hwang Primary Care Physician [phone] Encounter [facility] Date(s): 08/25/20 - 09/24/20 [facility] Adult [address] [place] [address]- Allergies, Adverse Reactions, Alerts Substance Reaction Severity [...] 04/25/01 Given 1Result Comment: [04/20/2016] [facility] 2Admin Note: pt declines 3Admin [...] Sleep apnea(Confirmed) 2, 3, 4 Active 1NE Uatsdin 2refer [...]
--- OUTSIDE RECORDS SUMMARY | 2024-02-25 00:37 | XMS_ITS | Continuity of Care Document ---
Author Organization [facility] [place] Fabiano lt Address [address] [place] [address]- Care Team Providers Care Order Booker Name Role Phone Masood Felton MD Primary Care Physician Encounter [facility] Date(s): 03/12/20 - 03/19/20 [facility] Adult [address] [place] [address]- [facility] Attending Physician: Masood Felton MD Allergies, Adverse [...] 04/25/01 Given 1Result Comment: [04/20/2016] [facility] 2Admin Note: pt declines 3Admin Note: given [...] b12 folate ldh, haptoglobin,retics 4macrocytosis workup 5NE Sikhism 6refer CPAP 7The apneas-hypopnea index was 10.3 per hour. The REM AHI was 21.0 per hour and the NREM AHI was 7.7per hour. The supine AHI is 10.3 per hour. The number of arousals was 57 for an arousal index of 9.5. 8per wifel;refer polysomnogram Vital Signs Most recent to oldest [Reference Range]: 1 Height 170.00 cm (03/12/20 7:20 AM) Weight 80.5 kg (03/12/20 7:20 AM) Oxygen Saturation [94-100 %] 98 % (03/12/20 7:20 AM) Pulse Rate [55-90 bpm] 71 bpm (03/12/20 7:20 AM) Body Mass Index [18.5-24.99] 27.85 *H* (03/12/20 7:20 AM) Blood Pressure [90-138/55-84 mm Hg] 124/ 82mm Hg (03/12/20 7:20 AM) Blood pressure sites Arm, right (03/12/20 7:20 AM) Social History Social History Type Response Smoking Status Never smoker entered on: 07/16/13 Sex
--- OUTSIDE RECORDS SUMMARY | 2024-02-25 00:37 | XMS_ITS | Continuity of Care Document ---
Author Organization [facility] Mohinder Fabiano lt Address [address] [place] [address]- Care Team Providers Care Horse Exerciser Name Role Phone Daiana HENSLEY, Brayan [place] Primary Care Physician Encounter [facility] Date(s): 08/08/23 - 09/10/23 [facility] [place] Adult [address] [place] [address]- Attending Physician: Em Aragon Allergies, Adverse Reactions, Alerts Substance Reaction Severity [...] Pertussis (oldterm) 06/14/11 Give n 1Result Comment: [id number] Checklist completed 2Result Comment: [facility] [id number] 3Result Comment: [04/20/2016] [facility] 4Admin Note: pt declines 5Admin Note: historical 6Admin Note: given at work Medications Flonase 50 mcg/inh nasal spray 1 sprays = 50 mcg, Nares, Both, 2 times a day, # 16 Gm, 0 Refills, Maintenance, 07/24/23 11:05:00 EST, [place], [facility], 1 sprays [...] 11 Refills, Maintenance, 03/27/23 10:39:00 EDT, Tablet, [facility], Partial fill upon [...] 10.3 2, 3, 4 Confirmed Active 1NE Sikhism 2refer CPAP 3The apneas-hypopnea index was 10.3 [...] Team Personnel Name: Brayan Ahmadi MD Position: [facility] Physician - Primary Care Member Role: PCP Address: Address: [address] [place] [address]- Care Team Related Persons Name: BC BARRAGAN Address: home [address] [place] [address]
--- OUTSIDE RECORDS SUMMARY | 2024-02-25 00:38 | XMS_ITS | Patient Health Record ---
Author Organization [facility] Address [address] [place] [address] Care Team Providers Care Cyber Systems Operations Specialist Name Role Phone Brayan Ahmadi MD Primary Care Provider David Paul Unavailable [phone] ALLERGIES Allergen (clinical drug ingredient) Drug/Non Drug Allergy documented on EMR Reaction Allergy Type Onset Date Status sulfamethoxazole / trimethoprim Bactrim rash Drug Allergy Active REASON FOR REFERRAL No Information MEDICATIONS Medication SIG (Take, Route, Fr equency, Duration) Notes Start Date End Date Status Diflucan 200 MG 1 tablet Orally i pop hs 2 Not-Taking Voltaren 1 % as directed Externally 07/05/2021 Active IMMUNIZATIONS Vaccine Route Administration Date Status Comme nts COVID-19 Pfizer BioNTech Vaccine Unknown 07/15/2021 Administered 1st 10/04/2020 2nd 10/26/2020 Influenza Unknown 04/08/2022 Administered SOCIAL HISTORY Tobacco Use: Social History Observation Description Date Details (start date - stop date) Never Smoker NA - NA Sex Assigned At : Social History Observation Description Sex Assigned At Unknown Tobacco Use/Smoking Question Answer Notes Are you a: nonsmoker Alcohol Screen Question Answer Notes Did you have a drink contain ing alcohol in the past year? Yes How often did you have a dri nk containing alcohol in the past year? 2 to 3 times a week (3 points) How often did you have 6 or more drinks on one occasion in the past year? Weekly (3 points) Points 6 Interpretation Positive Tobacco use other than smoking: Question Answer Notes Are you an other tobacco user? No PROBLEMS Problem Type ICD Code Onset Dates Problem Status W/U Status Risk SNOMED Code Notes Problem Primary osteoarthrit is, right ankle and foot (M19.071) Active confirmed Localized, prim dann osteoarthritis of the ankle and/or foot (451626874) Problem Primary osteoarthrit is, left ankle and foot (M19.072) Active confirmed Localized, prim dann osteoarthritis of the ankle and/or foot ([id number]) PLAN OF TREATMENT Pending Test Test Name Order Date *Liver Function Test (LFT) 08/19/2021 X ray : Foot, left 3V 07/05/2021 X ray : Foot, right 3V 07/05/2021 Insurance Providers Payer Name Payer Address Payer Phone Subscriber Number Group Number Insured Name Patient Relationship to Insured Coverage Start Date [facility]age End Date [facility] [address] [place] [address] [id number] Dalton Alberto Self - patient is the insured MEDICAL (GENERAL) HISTORY Medical History History ICD Code Arthritis Broken bones Bone implants/screws Surgical History Surgery Date(Month/Year) ankle surgery 07/07/1997 Right ankle fusion 09/03/2014 left knee replacement 04/29/22
== END 2024-02-24 10:48 | disposition home or self-care (01) ==
PROVIDERS: PCP Internal Medicine; Visit Provider Physician Assistant
DX: H60.331 Swimmer's ear, right ear (principal)
CPT/HCPCS: 99204